=== PATIENT | female | born 1945 | race Caucasian/White ===

== ENCOUNTER 2017-08-21 09:44 | Emergency (ER) | payer OTHER ==
[2017-08-21 10:37] LABS: Absolute Lymphocytes (CBC) 1.6 K/uL (0.7-4.9); Absolute Neutrophil 5.5 K/uL (1.8-8.0); Basophils % 1.4 % (0-1.3); Eosinophils % 1.4 % (0-4.4); Hematocrit 42.4 % (36.0-45.0); Lymphocytes % 19.4 % (15.3-44.8); MCH 30.2 pg (27.0-35.0); MCV 90.4 fL (80-100); MPV 10.2 fL (7.6-11.3); Monocytes % 11.8 % (3.3-12.3); RBC Red Blood Cell Count 4.69 M/uL (3.86-4.86)
[2017-08-21 10:58] LABS: Bicarbonate 31 mEq/L (21-31); Glucose Level 112 mg/dL (65-120); Potassium 4.2 mEq/L (3.6-5.0); Sodium Level 137 mEq/L (135-145)
[2017-08-21 10:59] LABS: BUN Blood Urea Nitrogen 10 mg/dL (6-20)
--- NOTE | 2017-08-21 11:06 | RAD REPORT ---
EXAM DESCRIPTION: CT - Head Brain Wo Cont - 08/21/2017 10:48 am CLINICAL HISTORY: Headache COMPARISON: None. TECHNIQUE: Computed axial tomography of the head was obtained. IV contrast was not requested. All CT scans are performed using dose optimization technique as appropriate and may include automated exposure control or mA/KV adjustment according to patient size. FINDINGS: An intracranial bleed is not seen . The ventricles are normal in caliber. No extra-axial fluid collection is noted. Fluid within the sinuses/ mastoids is not seen. IMPRESSION: No acute intracranial abnormality is seen. If patient's symptoms persist MRI of the bra in would be recommended.
--- NOTE | 2017-08-21 11:27 | EDPHYS ---
Physician Documentation [facility] Name: Dayan Riojas Age: 72 yrs Sex: Female : 1945 Arrival Date: 08/21/2017 Time: 09:48 Bed 8 Private MD: Peter Garcia F ED Physician Bryant Dumont HPI: 08/21 10:11 This 72 yrs old Female presents to ER via Ambulatory with complaints of kdr Headache. 10:11 The patient complains of pain to the forehead, right eye, right cheek, nose, left cheek kdr and left eye. The patient describes the headache as aching, constant, a pressure, unrelenting. Onset: The symptoms/episode began/occurred The is an ongoing HOLLAND for months if not years that has become mildly worse in the last two days. Her last imaging was five years ago. There has not been any abrupt changes in the severity or location of the HOLLAND. it is persistently in her face - more upper than lower.. Associated signs and symptoms: The patient has no apparent associated signs or symptoms. Severity of symptoms: At its worst the pain was moderate, in the emergency department the pain is unchanged. Headache History: Other More sever the last two days bu the patient does not appear in any acute distress. She is sitting on the bedside comfortably. The symptoms are alleviated by nothing. the symptoms are aggravated by nothing. The patient has experienced similar episodes in the past, chronically. The patient has been recently seen by a physician: Dr. Garcia. Historical: - Allergies: 09:55 No Known Allergies; hb - Home Meds: 09:55 Magnesium Oxide Oral [Active]; Fish Oil oral oral [Active]; aspirin 325 mg Oral tab 1 hb tab once daily [Active]; metoprolol tartrate 25 mg Oral tab 1 tab once daily [Active]; donepezil 23 mg oral tab 1 tab once daily [Active]; Namzaric 28-10 mg oral CSpX 1 cap once daily [Active]; losartan 100 mg oral tab 1 tab once daily [Active]; levothyroxine 50 mcg tab 1 tab once daily [Active]; - PSHx: 09:55 Knee - LEFT; Heart stents; Shoulder - RIGHT; Cholecystectomy; hb - Immunization history:: Adult Immunizations up to date. - Social history:: Smoking status: Patient/guardian denies using tobacco. - Ebola Screening: : No symptoms or risks identified at this time. ROS: 10:11 Constitutional: Negative for fever, chills, and weight loss, Eyes: Negative for injury, kdr pain, redness, and discharge, ENT: Negative for injury, pain, and discharge, Neck: Negative for injury, pain, and swelling, Cardiovascular: Negative for chest pain, palpitations, and edema, Respiratory: Negative for shortness of breath, cough, wheezing, and pleuritic chest pain, Abdomen/GI: Negative for abdominal pain, nausea, vomiting, diarrhea, and constipation, Back: Negative for injury and pain, : Negative for injury, bleeding, discharge, and swelling, MS/Extremity: Negative for injury and deformity, Skin: Negative for injury, rash, and discoloration, Psych: Negative for depression, anxiety, suicide ideation, homicidal ideation, and hallucinations, Allergy/Immunology: Negative for hives, rash, and allergies, Endocrine: Negative for neck swelling, polydipsia, polyuria, polyphagia, and marked weight changes, Hematologic/Lymphatic: Negative for swollen nodes, abnormal bleeding, and unusual bruising. 10:11 Neuro: Positive for headache, Negative for altered mental status, dizziness, gait disturbance, hearing loss, loss of consciousness, numbness, seizure activity, speech changes, syncope, near syncope, tingling, tinnitus, tremor, visual changes, weakness. Exam: 10:11 Constitutional: This is a well developed, well nourished patient who is awake, alert, kdr and in no acute distress. Head/Face: Normocephalic, atraumatic. Eyes: Pupils equal round and reactive to light, extra-ocular motions intact. Lids and lashes normal. Conjunctiva and sclera are non-icteric and not injected. Cornea within normal limits. Periorbital areas with no swelling, redness, or edema. Neck: Trachea midline, no thyromegaly or masses palpated, and no cervical lymphadenopathy. Supple, full range of motion without nuchal rigidity, or vertebral point tenderness. No Meningismus. Chest/axilla: Normal chest wall appearance and motion. Nontender with no deformity. No lesions are appreciated. Cardiovascular: Regular rate and rhythm with a normal S1 and S2. No gallops, murmurs, or rubs. Normal PMI, no JVD. No pulse deficits. Respiratory: Lungs have equal breath sounds bilaterally, clear to auscultation and percussion. No rales, rhonchi or wheezes noted. No increased work of breathing, no retractions or nasal flaring. Abdomen/GI: Soft, non-tender, with normal bowel sounds. No distension or tympany. No guarding or rebound. No evidence of tenderness throughout. Back: No spinal tenderness. No costovertebral tenderness. Full range of motion. Skin: Warm, dry with normal turgor. Normal color with no rashes, no lesions, and no evidence of cellulitis. MS/ Extremity: Pulses equal, no cyanosis. Neurovascular intact. Full, normal range of motion. Neuro: Awake and alert, GCS 15, oriented to person, place, time, and situation. Cranial nerves II-XII grossly intact. Motor strength 5/5 in all extremities. Sensory grossly intact. Cerebellar exam normal. Normal gait. Psych: Awake, alert, with orientation to person, place and time. Behavior, mood, and affect are within normal limits. Vital Signs: 09:52 BP 168 / 76; Pulse 52; Resp 16; Temp 98.2; Pulse Ox 99% on R/A; Weight 68.95 kg; Height hb 5 ft. 5 in. (165.10 cm); Pain 8/10; 10:33 BP 150 / 59; Pulse 52; Resp 18; Pulse Ox 95% on R/A; sv 12:18 Pain 4/10; dm5 09:52 Body Mass Index 25.29 (68.95 kg, 165.10 cm) hb MDM: 11:27 Patient medically screened. kdr 11:29 Data reviewed: vital signs, nurses notes, lab test result(s), radiologic studies. kdr Counseling: I had a detailed discussion with the patient and/or guardian regarding: the historical points, exam findings, and any diagnostic results supporting the discharge/admit diagnosis, lab results, radiology results, the need for outpatient follow up. Physician consultation: Peter Garcia MD was called at 11:20, was contacted at 11:20, regarding consult, patient's condition, need to evaluate the patient as soon as possible, outpatient follow-up, in 2-3 days, and will see patient in office, in 2-3 days. 11:30 Special discussion: I discussed with the patient/guardian in detail that at this point kdr there is no indication for admission to the hospital. It is understood, however, that if the symptoms persist or worsen the patient needs to return immediately for re-evaluation. Based on the history and exam findings, there is no indication for further emergent testing or inpatient evaluation. I discussed with the patient/guardian the need to see the neurologist for further evaluation of the symptoms. ED course: The patient was stable in the ED and non-toxic in any way. 08/21 10:09 Order name: CBC with Diff kdr 08/21 10:09 Order name: Chem 7 kdr 08/21 10:09 Order name: CT Head Brain wo Cont; Complete Time: 11:22 kdr 08/21 10:10 Order name: CBC with Automated Diff; Complete Time: 11:22 EDIN 08/21 10:10 Order name: Basic Metabolic Panel; Complete Time: 11:22 [facility] 08/21 12:17 Order name: Urine Dipstick--Ancillary (enter results) ag 08/21 10:09 Order name: Urine Dipstick-Ancillary (obtain specimen); Complete Time: 12:09 [facility] Administered Medications: 12:13 Drug: traMADol 50 mg Route: PO; dm5 12:18 Follow up: Response: No adverse reaction; Medication administered at discharge. dm5 Disposition: 08/21/17 11:27 Discharged to Home. Impression: Headache. - Condition is Stable. - Discharge Instructions: General Headache Without Cause. - Prescriptions for Depakote 250 mg Oral Tablet, Delayed Release (E.C.) - take 1 tablet by ORAL route At bedtime; 15 tablet. Tramadol 50 mg Oral Tablet - take 1 tablet by ORAL route every 8 hours as needed; 12 tablet. - Medication Reconciliation Form, Thank You Letter, Antibiotic Education, Prescription Opioid Use form. - Follow up: Peter Garcia MD; When: Today; Reason: If symptoms return, Further diagnostic work-up, Recheck today's complaints, Continuance of care, Re-evaluation by your physician. - Problem is an ongoing problem. - Symptoms are unchanged. Signatures: Dispatcher [facility] Haily Kc, JONEL RN dm5 Bryant Dumont MD MD [facility] Maryjane Jackson RN RN Corrections: (The following items were deleted from the chart) 12:19 11:27 08/21/2017 11:27 Discharged to Home. Impression: Headache. Condition is Stable. dm5 Forms are Medication Reconciliation Form, Thank You Letter, Antibiotic Education, Prescription Opioid Use. Follow up: Peter Garcia; When: Today; Reason: If symptoms return, Further diagnostic work-up, Recheck today's complaints, Continuance of care, Re-evaluation by your physician. Problem is an ongoing problem. Symptoms are unchanged. kdr
--- NOTE | 2017-08-21 11:27 | ER ---
Nurse's Notes [facility] Name: Dayan Riojas Age: 72 yrs Sex: Female : 1945 Arrival Date: 08/21/2017 Time: 09:48 Bed 8 Private MD: Peter Garcia F Diagnosis: Headache Presentation: 08/21 09:50 Presenting complaint: Patient states: Headache x 2 days. Denies photosensitivity, N/V. hb Hx migraines, chronic headache. Today headache feels worse than her typical headache. Was instructed by Dr. Garcia to come to ED. Transition of care: patient was not received from another setting of care. Onset of symptoms was August 20, 2017. Risk Assessment: Do you want to hurt yourself or someone else? Patient reports no desire to harm self or others. Initial Sepsis Screen: Does the patient meet any 2 criteria? No. Patient's initial sepsis screen is negative. Does the patient have a suspected source of infection? No. Patient's initial sepsis screen is negative. Care prior to arrival: None. 09:50 Method Of Arrival: Ambulatory hb 09:50 Acuity: AZIZA 3 hb Triage Assessment: 09:55 Headache History: The patient has had previous headaches and this one is more severe sv than previous episodes. Historical: - Allergies: 09:55 No Known Allergies; hb - Home Meds: 09:55 Magnesium Oxide Oral [Active]; Fish Oil oral oral [Active]; aspirin 325 mg Oral tab 1 hb tab once daily [Active]; metoprolol tartrate 25 mg Oral tab 1 tab once daily [Active]; donepezil 23 mg oral tab 1 tab once daily [Active]; Namzaric 28-10 mg oral CSpX 1 cap once daily [Active]; losartan 100 mg oral tab 1 tab once daily [Active]; levothyroxine 50 mcg tab 1 tab once daily [Active]; - PSHx: 09:55 Knee - LEFT; Heart stents; Shoulder - RIGHT; Cholecystectomy; hb - Immunization history:: Adult Immunizations up to date. - Social history:: Smoking status: Patient/guardian denies using tobacco. - Ebola Screening: : No symptoms or risks identified at this time. Screenin:57 Abuse screen: Denies threats or abuse. Denies injuries from another. Nutritional sv screening: No deficits noted. Tuberculosis screening: No symptoms or risk factors identified. Fall Risk None identified. Assessment: 09:55 General: Appears in no apparent distress. uncomfortable, Behavior is calm, cooperative, sv appropriate for age. Pain: Complains of pain in forehead, right eye, right cheek, left cheek and left eye Pain currently is 8 out of 10 on a pain scale. Quality of pain is described as throbbing, Pain began 2-3 days ago. Is continuous, Current management - is no interventions. Neuro: Level of Consciousness is awake, alert, obeys commands, Oriented to person, place, time, situation, Moves all extremities. Full function Gait is steady, Speech is normal, Facial symmetry appears normal. Respiratory: Respiratory effort is even, unlabored, Respiratory pattern is regular, symmetrical. : No signs and/or symptoms were reported regarding the genitourinary system. Derm: Skin is normal. Musculoskeletal: No signs and/or symptoms reported regarding the musculoskeletal system. 12:18 Reassessment: Patient appears in no apparent distress at this time. Patient is alert, dm5 oriented x 3, equal unlabored respirations, skin warm/dry/pink. Vital Signs: 09:52 BP 168 / 76; Pulse 52; Resp 16; Temp 98.2; Pulse Ox 99% on R/A; Weight 68.95 kg; Height hb 5 ft. 5 in. (165.10 cm); Pain 8/10; 10:33 BP 150 / 59; Pulse 52; Resp 18; Pulse Ox 95% on R/A; sv 12:18 Pain 4/10; dm5 09:52 Body Mass Index 25.29 (68.95 kg, 165.10 cm) hb ED Course: 09:48 Patient arrived in ED. sb2 09:49 Peter Garcia MD is Private Physician. sb2 09:52 Triage completed. hb 09:55 Arm band placed on left wrist. hb 09:57 Ute Singh RN is Primary Nurse. sv 09:57 Patient has correct armband on for positive identification. Bed in low position. Adult sv w/ patient. 09:59 Bryant Dumont MD is Attending Physician. kdr 10:26 Chem 7 Sent. sv 10:26 CBC with Diff Sent. sv 10:33 Initial lab(s) drawn, by va, sent to lab. Inserted saline lock: 20 gauge in left sv antecubital area, using aseptic technique. Blood collected. 10:46 CT completed. Patient tolerated procedure well. Patient moved to CT via stretcher. mw3 Patient moved back from CT. 10:49 CT Head Brain wo Cont In Process Unspecified. EDMS 11:27 Peter Garcia MD is Referral Physician. kdr 12:18 No provider procedures requiring assistance completed. IV discontinued, intact, dm5 bleeding controlled, No redness/swelling at site. Pressure dressing applied. Administered Medications: 12:13 Drug: traMADol 50 mg Route: PO; dm5 12:18 Follow up: Response: No adverse reaction; Medication administered at discharge. dm5 Outcome: 11:27 Discharge ordered by MD. kdr 12:18 Discharged to home ambulatory, with family. dm5 12:18 Condition: good 12:18 Discharge instructions given to patient, family, Instructed on discharge instructions, follow up and referral plans. medication usage, Demonstrated understanding of instructions, follow-up care, medications, Prescriptions given X 2. 12:19 Patient left the ED. dm5 Signatures: Dispatcher [employer] EDNM Haily Kc, RN RN dm5 Ute Singh RN RN Bryant Terrell MD MD kdr Baxter, Heather, JONEL RN Indira Cordero sb2 Cheyenne Sifuentes mw3
[2017-08-21] MEDS ORDERED: TRAMADOL HCL 50 MG TAB ONE (12:13)
[2017-08-21 12:21] LABS: Urine Blood NEGATIVE (NEG); Urine Glucose NEGATIVE (NEG); Urine Protein NEGATIVE (NEG); Urine Specific Gravity 1.015 (1.005-1.030)
== END 2017-08-21 12:19 | disposition home or self-care (01) ==
LOC: ER 09:44
DX: R51 Headache (principal); Z79.82 Long term (current) use of aspirin; Z95.818 Presence of other cardiac implants and grafts
CPT/HCPCS: 36415; 70450; 80048; 81003; 85025; 99284

== ENCOUNTER 2018-02-01 14:18 | Emergency (ER) | payer OTHER ==
--- NOTE | 2018-02-01 14:40 | ER ---
Nurse's Notes [facility] Name: Dayan Riojas Age: 72 yrs Sex: Female : 1945 Arrival Date: 02/01/2018 Time: 14:18 Bed 13 Private MD: Diagnosis: Urticaria, unspecified Presentation: 02/01 14:28 Presenting complaint: Patient states: i started having itchy type of rash on my face, hj neck, arms that started a weeks ago; denies fever and chills;. Transition of care: patient was not received from another setting of care. Onset of symptoms was February 01, 2018. Risk Assessment: Do you want to hurt yourself or someone else? Patient reports no desire to harm self or others. Initial Sepsis Screen: Does the patient meet any 2 criteria? No. Patient's initial sepsis screen is negative. Does the patient have a suspected source of infection? No. Patient's initial sepsis screen is negative. Care prior to arrival: None. 14:28 Method Of Arrival: Ambulatory 14:28 Acuity: AZIZA 4 hj Triage Assessment: 14:32 General: Appears in no apparent distress. uncomfortable, Behavior is calm, cooperative, hj appropriate for age. Pain: Denies pain. Historical: - Allergies: 14:31 No Known Allergies; hj - Home Meds: 14:31 aspirin 325 mg Oral tab 1 tab once daily [Active]; donepezil 23 mg Oral tab 1 tab once hj daily [Active]; Fish Oil Oral [Active]; levothyroxine 50 mcg tab 1 tab once daily [Active]; losartan 100 mg Oral tab 1 tab once daily [Active]; Magnesium Oxide Oral [Active]; metoprolol tartrate 25 mg Oral tab 1 tab once daily [Active]; Namzaric 28-10 mg Oral CSpX 1 cap once daily [Active]; - PSHx: 14:31 Knee - LEFT; Heart stents; Shoulder - RIGHT; Cholecystectomy; hj - Immunization history:: Adult Immunizations up to date. - Social history:: Smoking status: Patient/guardian denies using tobacco, Patient/guardian denies using alcohol. - Ebola Screening: : Patient negative for fever greater than or equal to 101.5 degrees Fahrenheit, and additional compatible Ebola Virus Disease symptoms Patient denies exposure to infectious person Patient denies travel to an Ebola-affected area in the 21 days before illness onset. Screenin:32 Abuse screen: Denies threats or abuse. Denies injuries from another. Nutritional hj screening: No deficits noted. Tuberculosis screening: No symptoms or risk factors identified. Fall Risk None identified. Assessment: 14:33 General: Appears in no apparent distress. uncomfortable, Behavior is calm, cooperative, hj appropriate for age. Pain: Denies pain. Neuro: Level of Consciousness is awake, alert, obeys commands, Oriented to person, place, time, situation, Appropriate for age. Cardiovascular: Capillary refill < 3 seconds Patient's skin is warm and dry. Respiratory: Airway is patent Respiratory effort is even, unlabored, Respiratory pattern is regular, symmetrical. GI: No signs and/or symptoms were reported involving the gastrointestinal system. GI: No signs and/or symptoms were reported involving the gastrointestinal system. : No signs and/or symptoms were reported regarding the genitourinary system. EENT: No signs and/or symptoms were reported regarding the EENT system. Derm: Rash noted that is. Musculoskeletal: No signs and/or symptoms reported regarding the musculoskeletal system. Vital Signs: 14:31 BP 168 / 90; Pulse 60; Resp 18; Temp 97.6(TE); Pulse Ox 100% on R/A; Weight 72.57 kg; hj Height 5 ft. 5 in. (165.10 cm); Pain 0/10; 14:31 Body Mass Index 26.63 (72.57 kg, 165.10 cm) hj ED Course: 14:18 Patient arrived in ED. ds1 14:24 Florentino Hill PA is PHCP. cp 14:24 Brian Cuevas MD is Attending Physician. cp 14:27 Chris Prescott, JONEL is Primary Nurse. hj 14:29 Triage completed. hj 14:32 Arm band placed on left wrist. hj 14:32 Patient has correct armband on for positive identification. Bed in low position. Call hj light in reach. Side rails up X 1. Adult w/ patient. 14:49 No provider procedures requiring assistance completed. Patient did not have IV access hj during this emergency room visit. Administered Medications: No medications were administered Outcome: 14:39 Discharge ordered by MD. cp 14:49 Discharged to home ambulatory, with family. hj 14:49 Condition: stable 14:49 Discharge instructions given to patient, family, Instructed on discharge instructions, follow up and referral plans. medication usage, Demonstrated understanding of instructions, follow-up care, medications, Prescriptions given X 3. 14:49 Patient left the ED. autumn Signatures: Becky Muir ds1 Chris Prescott, RN RN Florentino Ac PA PA cp
--- NOTE | 2018-02-01 14:40 | EDPHYS ---
Physician Documentation [facility] Name: Dayan Riojas Age: 72 yrs Sex: Female : 1945 Arrival Date: 02/01/2018 Time: 14:18 Bed 13 Private MD: ED Physician Brian Cuevas HPI: 02/01 14:30 This 72 yrs old Female presents to ER via Ambulatory with complaints of Rash. cp 14:30 The patient's rash thought to be caused by an unknown cause. The rash is located on the cp body diffusely. The rash can be described as erythematous, papular, urticarial. Onset: The symptoms/episode began/occurred 1 week(s) ago. Associated signs and symptoms: Pertinent positives: itching, Pertinent negatives: difficulty breathing, fever, swelling of lips, swelling of throat, swelling of tongue. Severity of symptoms: in the emergency department the symptoms are unchanged. Treatment given at home: steroid lotion/cream. Historical: - Allergies: 14:31 No Known Allergies; hj - Home Meds: 14:31 aspirin 325 mg Oral tab 1 tab once daily [Active]; donepezil 23 mg Oral tab 1 tab once hj daily [Active]; Fish Oil Oral [Active]; levothyroxine 50 mcg tab 1 tab once daily [Active]; losartan 100 mg Oral tab 1 tab once daily [Active]; Magnesium Oxide Oral [Active]; metoprolol tartrate 25 mg Oral tab 1 tab once daily [Active]; Namzaric 28-10 mg Oral CSpX 1 cap once daily [Active]; - PSHx: 14:31 Knee - LEFT; Heart stents; Shoulder - RIGHT; Cholecystectomy; hj - Immunization history:: Adult Immunizations up to date. - Social history:: Smoking status: Patient/guardian denies using tobacco, Patient/guardian denies using alcohol. - Ebola Screening: : Patient negative for fever greater than or equal to 101.5 degrees Fahrenheit, and additional compatible Ebola Virus Disease symptoms Patient denies exposure to infectious person Patient denies travel to an Ebola-affected area in the 21 days before illness onset. ROS: 14:33 Eyes: Negative for injury, pain, redness, and discharge. cp 14:33 Constitutional: Negative for body aches, chills, fever, poor PO intake. 14:33 ENT: Negative for drainage from ear(s), ear pain, sore throat, difficulty swallowing, difficulty handling secretions. 14:33 Cardiovascular: Negative for chest pain, edema, palpitations. 14:33 Respiratory: Negative for cough, shortness of breath, wheezing. 14:33 Abdomen/GI: Negative for abdominal pain, nausea, vomiting, and diarrhea, black/tarry stool, rectal bleeding. 14:33 Skin: Positive for rash, diffusely, Negative for abscesses, cellulitis. 14:33 Neuro: Negative for altered mental status, headache, weakness. 14:33 All other systems are negative. Exam: 14:35 Head/Face: Normocephalic, atraumatic. cp 14:35 Constitutional: The patient appears in no acute distress, alert, awake, non-diaphoretic, non-toxic, well developed, well nourished. 14:35 Eyes: Periorbital structures: appear normal, Conjunctiva: normal, no exudate, no cp injection, Sclera: no appreciated abnormality, Lids and lashes: appear normal, bilaterally. 14:35 ENT: External ear(s): are unremarkable, Nose: is normal, Mouth: is normal, Posterior pharynx: is normal, airway is patent. 14:35 Neck: ROM/movement: is normal, is supple, without pain, no range of motions limitations, no nuchal rigidity. 14:35 Chest/axilla: Palpation: is normal, no crepitus, no tenderness. 14:35 Cardiovascular: Rate: normal. 14:35 Respiratory: the patient does not display signs of respiratory distress, Respirations: normal, no use of accessory muscles, no retractions, no splinting, no tachypnea, labored breathing, is not present. 14:35 Abdomen/GI: Exam negative for discomfort, distension, guarding. 14:35 Skin: consistent with urticaria, areas appear excoriated with no signs of erythema or drainage. Vital Signs: 14:31 BP 168 / 90; Pulse 60; Resp 18; Temp 97.6(TE); Pulse Ox 100% on R/A; Weight 72.57 kg; hj Height 5 ft. 5 in. (165.10 cm); Pain 0/10; 14:31 Body Mass Index 26.63 (72.57 kg, 165.10 cm) MDM: 14:24 Patient medically screened. cp 14:35 Differential diagnosis: impetigo, varicella, allergic reaction, scabies. cp 14:38 Data reviewed: vital signs, nurses notes, and as a result, I will discharge patient. cp Administered Medications: No medications were administered Disposition: 18:35 Co-signature as Attending Physician, Brian Cuevas MD. ma2 Disposition: 02/01/18 14:39 Discharged to Home. Impression: Urticaria, unspecified. - Condition is Stable. - Discharge Instructions: Hives. - Prescriptions for Pepcid 20 mg Oral Tablet - take 1 tablet by ORAL route every 12 hours for 5 days; 10 tablet. Triamcinolone Acetonide 0.5 % Topical Cream - apply 1 application by TOPICAL route 2 times per day As needed may apply cream to areas of rash except face; 1 tube. Prednisone 20 mg Oral Tablet - take 2 tablet by ORAL route once daily for 5 days; 10 tablet. - Medication Reconciliation Form, Thank You Letter, Antibiotic Education, Prescription Opioid Use form. - Follow up: Private Physician; When: 5 - 6 days; Reason: Recheck today's complaints. - Problem is new. - Symptoms are unchanged. Signatures: Chris Prescott RN RN hj Florentino Hill PA PA Brian Doan MD MD ma2 Corrections: (The following items were deleted from the chart) 14:49 14:39 02/01/2018 14:39 Discharged to Home. Impression: Urticaria, unspecified. hj Condition is Stable. Forms are Medication Reconciliation Form, Thank You Letter, Antibiotic Education, Prescription Opioid Use. Follow up: Private Physician; When: 5 - 6 days; Reason: Recheck today's complaints. Problem is new. Symptoms are unchanged. cp
== END 2018-02-01 14:49 | disposition home or self-care (01) ==
LOC: ER 14:18
DX: L50.9 Urticaria, unspecified (principal); Z79.82 Long term (current) use of aspirin; Z95.818 Presence of other cardiac implants and grafts
CPT/HCPCS: 99282

== ENCOUNTER 2021-04-02 18:15 | Inpatient (IN) | payer OTHER ==
--- OUTSIDE RECORDS SUMMARY | 2021-04-02 18:19 | XMS REPORT | Continuity of Care Document ---
:1945 Author Organization [facility] t Address [address] [place] [place] [address] Care Team Providers Name Role Phone Mechelle Cline Attending Clinician Doctor Unassigned, Name Attending Clinician Unavailable Problems This patient has no known problems. Allergies, Adverse Reactions, Alerts This patient has no known allergies or adverse reactions. Medications This patient has no known medications. Procedures This patient has no known procedures. Encounters Start End Encounter Admission Attending Care Care Encounter Source Date/Time Date/Time Type Type Clinicians Facility Department ID 2018-11-07 2018-11-07 Emergency [place] [facility] [id number] 11:17:15 13:29:00 Mechelle Bradshaw [id number] [place] [id number] [place] [id number] 2018-11-07 2018-11-07 Orders Doctor RACHEL [id number] 00:00:00 00:00:00 Only UnassignedGABRIELLE [id number] [place] [facility] [id number] Results This patient has no known results.
--- NOTE | 2021-04-02 20:11 | RAD REPORT ---
EXAM DESCRIPTION: RAD - Chest Single View - 04/02/2021 7:44 pm CLINICAL HISTORY: AMS COMPARISON: No comparisons FINDINGS: Lines: None. Lungs: Emphysematous changes. Volume loss in the right lung with scattered irregular opacities and br onchial wall thickening. Pleural: Rounded nodule right mid lung may be fluid trapped within the minor fissure but is nonspecif ic. Cardiac: Cardiomegaly. Bones: No acute fractures. Other: IMPRESSION: Primarily chronic finding suspected with emphysema but other areas of more irregular air space disease that could represent superimposed acute pneumonia. Right mid lung nodular opacity. Consider nonemergent chest CT for further characterization.
--- NOTE | 2021-04-02 20:46 | RAD REPORT ---
EXAM DESCRIPTION: CT - Head Brain Wo Cont - 04/02/2021 8:39 pm CLINICAL HISTORY: CONFUSED COMPARISON: Head Brain Wo Cont dated 08/21/2017 TECHNIQUE: All CT scans are performed using dose optimization technique as appropriate and may inclu de automated exposure control or mA/KV adjustment according to patient size. FINDINGS: No intracranial hemorrhage, hydrocephalus or extra-axial fluid collection.No areas of brai n edema or evidence of midline shift. Cerebral atrophy. Mild chronic small vessel ischemic changes. The paranasal sinuses and mastoids are clear. The calvarium is intact. IMPRESSION: No acute intracranial abnormality.
[2021-04-02 21:42] LABS: Protime INR 1.6
[2021-04-02 21:43] LABS: Absolute Lymphocytes (CBC) 0.5 K/uL (0.7-4.9); Hematocrit 42.5 % (36.0-45.0); Lymphocytes % 4.7 % (15.3-44.8); MPV 9.5 fL (7.6-11.3); RBC Red Blood Cell Count 5.08 M/uL (3.86-4.86)
[2021-04-02 22:06] LABS: ALT/SGPT 17 U/L (12-78); AST/SGOT 57 U/L (15-37); Albumin 2.8 g/dL (3.4-5.0); Alkaline Phosphatase 109 U/L (45-117); BUN Blood Urea Nitrogen 16 mg/dL (7-18); Bicarbonate 32 mmol/L (21-32); Bilirubin Direct 0.4 mg/dL (0-0.2); Bilirubin Total 0.9 mg/dL (0.2-1.0); Glucose Level 118 mg/dL (74-106); NT PRO-BNP 15314 pg/mL (<450); Sodium Level 137 mmol/L (136-145)
[2021-04-02 22:12] LABS: Potassium 2.5 mmol/L (3.5-5.1)
[2021-04-02 22:17] LABS: SARS-COV-2 RT PCR NEGATIVE (NEGATIVE)
--- NOTE | 2021-04-02 22:25 | EDPHYS ---
Physician Documentation [facility] Name: Dayan Riojas Age: 75 yrs Sex: Female : 1945 Arrival Date: 04/02/2021 Time: 18:33 Bed 7 Private MD: ED Physician Wilder Grande HPI: 04/02 19:16 This 75 yrs old Female presents to ER via EMS with complaints of Altered Mental Status. mh7 19:16 The patient presents with confusion. Onset: The symptoms/episode began/occurred mh7 yesterday, at an unknown time. 19:16 Possible causes: unknown. mh7 19:16 Associated signs and symptoms: Pertinent positives: confusion, dizziness, weakness, mh7 Pertinent negatives: abdominal pain, agitation, ataxia, blurred vision, chest pain, combativeness, diaphoresis, diarrhea, headache, nausea, numbness, palpitations, seizure, shortness of breath, tingling, vertigo, vomiting. Current symptoms: In the emergency department the patient's symptoms are unchanged from the initial presentation. Patient's baseline: Neuro: alert but confused, Motor: no deficits, Speech: normal for age, The patient has a previous history of Dementia. According to EMS family had patient brought to ED for evaluation due to increased confusion, dizziness, and weakness. They reported the patient had been laying on sofa for the past 18 hours. She has a history of dementia. Patient denies any complaints at time of evaluation in ED.. Historical: - Allergies: 18:36 No Known Allergies; ll1 - PMHx: 18:36 Dementia; Hypothyroidism; Hypertensive disorder; ll1 - PSHx: 18:36 Unable to Obtain; ll1 - Immunization history:: Adult Immunizations unknown. - Social history:: Smoking status: Patient denies any tobacco usage or history of. ROS: 19:16 Constitutional: Negative for fever, chills, and weight loss, Eyes: Negative for injury, mh7 pain, redness, and discharge, ENT: Negative for injury, pain, and discharge, Neck: Negative for injury, pain, and swelling, Cardiovascular: Negative for chest pain, palpitations, and edema, Respiratory: Negative for shortness of breath, cough, wheezing, and pleuritic chest pain, Abdomen/GI: Negative for abdominal pain, nausea, vomiting, diarrhea, and constipation, Back: Negative for injury and pain, : Negative for injury, bleeding, discharge, and swelling, MS/Extremity: Negative for injury and deformity, Skin: Negative for injury, rash, and discoloration, Psych: Negative for depression, anxiety, suicide ideation, homicidal ideation, and hallucinations, Allergy/Immunology: Negative for hives, rash, and allergies, Endocrine: Negative for neck swelling, polydipsia, polyuria, polyphagia, and marked weight changes, Hematologic/Lymphatic: Negative for swollen nodes, abnormal bleeding, and unusual bruising. Exam: 19:16 Constitutional: This is a well developed, well nourished patient who is awake, alert, mh7 and in no acute distress. Head/Face: Normocephalic, atraumatic. Eyes: Pupils equal round and reactive to light, extra-ocular motions intact. Lids and lashes normal. Conjunctiva and sclera are non-icteric and not injected. Cornea within normal limits. Periorbital areas with no swelling, redness, or edema. Neck: Trachea midline, no thyromegaly or masses palpated, and no cervical lymphadenopathy. Supple, full range of motion without nuchal rigidity, or vertebral point tenderness. No Meningismus. Chest/axilla: Normal chest wall appearance and motion. Nontender with no deformity. No lesions are appreciated. 19:16 Abdomen/GI: Soft, non-tender, with normal bowel sounds. No distension or tympany. No guarding or rebound. No evidence of tenderness throughout. Back: No spinal tenderness. No costovertebral tenderness. Full range of motion. Skin: Warm, dry with normal turgor. Normal color with no rashes, no lesions, and no evidence of cellulitis. MS/ Extremity: Pulses equal, no cyanosis. Neurovascular intact. Full, normal range of motion. 19:16 Cardiovascular: Rate: tachycardic, Rhythm: regular, Pulses: no pulse deficits are appreciated, Heart sounds: normal, normal S1and S2, Edema: is not appreciated, JVD: is not appreciated. 19:16 Respiratory: the patient does not display signs of respiratory distress, Respirations: prolonged exhalation, that is mild, Breath sounds: rhonchi, that are mild, are heard diffusely, Respiratory rate: 20 19:16 Neuro: Orientation: to person, place, Mentation: confused, Memory: unable to test, the patient has a history of dementia, Cranial nerves: is grossly normal based on the patient's age, Cerebellar function: is grossly normal based on the patient's age, Motor: moves all fours, Sensation: no obvious gross deficits, Gait: not tested. seizure activity, is not displayed by the patient, Abnormal movements: there are no abnormal movements. Vital Signs: 18:43 BP 118 / 80; Pulse 118; Resp 17; Temp 98.0; Pulse Ox 98% on R/A; ll1 18:52 BP 139 / 84; Pulse 104; Resp 19; Temp 98.2(TE); Pulse Ox 97% on R/A; ap3 20:00 BP 138 / 70; Pulse 101; Resp 28; Pulse Ox 90% ; al4 23:00 BP 128 / 65; Pulse 89; Resp 25; Pulse Ox 96% on 4 lpm NC; al4 04/03 00:00 BP 126 / 65; Pulse 96; Resp 24; Pulse Ox 98% on 4 lpm NC; al4 01:00 BP 122 / 74; Pulse 86; Resp 24; Pulse Ox 100% on 4 lpm NC; al4 01:45 BP 109 / 84; Pulse 100; Resp 24; Pulse Ox 100% on 4 lpm NC; al4 02:15 BP 116 / 69; Pulse 87; Resp 24; Pulse Ox 100% on 4 lpm NC; al4 02:34 Weight 52.16 kg (R); al4 MDM: 04/02 22:22 Differential Diagnosis: CVA, electrolyte abnormality, alcohol intoxication, mh7 hypoglycemia, intracranial bleed, pneumonia, sepsis, TIA, UTI, volume depletion. Data reviewed: vital signs, nurses notes, EMS record, old medical records, lab test result(s), cardiac enzymes, CBC, electrolytes, EKG, radiologic studies, CT scan, plain films. Data interpreted: Pulse oximetry: on 2L(s) per nasal canula, is 95 %. Interpretation: acceptable. Counseling: I had a detailed discussion with the patient and/or guardian regarding: the historical points, exam findings, and any diagnostic results supporting the discharge/admit diagnosis, the presence of at least one elevated blood pressure reading (>120/80) during this emergency department visit, lab results, radiology results, the need for further work-up and treatment in the hospital. Response to treatment: the patient's symptoms have mildly improved after treatment. 22:24 Patient medically screened. [facility] 04/02 19:13 Order name: Basic Metabolic Panel; Complete Time: 22:17 [facility] 04/02 19:13 Order name: CBC with Diff; Complete Time: 21:51 04/02 19:13 Order name: LFT's; Complete Time: 22:17 [facility] 04/02 19:13 Order name: Magnesium; Complete Time: 22:17 [facility] 04/02 19:13 Order name: NT PRO-BNP; Complete Time: 22:17 [facility] 04/02 19:13 Order name: PT-INR; Complete Time: 21:51 [facility] 04/02 19:13 Order name: Troponin HS; Complete Time: 22:17 [facility] 04/02 19:13 Order name: Blood Culture Adult (2) [facility] 04/02 19:13 Order name: Urine Culture [facility] 04/02 19:13 Order name: Lactate; Complete Time: 22:11 [facility] 04/02 19:13 Order name: Procalcitonin; Complete Time: 22:11 [facility] 04/02 19:14 Order name: COVID-19/FLU A+B/RSV (Document "Date of Onset" if Symptomatic); Complete [facility] Time: 22:19 04/02 19:15 Order name: Acetaminophen; Complete Time: 22:17 [facility] 04/02 19:15 Order name: ETOH Level; Complete Time: 21:51 [facility] 04/02 19:13 Order name: XRAY Chest (1 view); Complete Time: 20:31 [facility] 04/02 19:13 Order name: EKG; Complete Time: 19:15 [facility] 04/02 19:13 Order name: Cardiac monitoring; Complete Time: 21:29 [facility] 04/02 19:13 Order name: EKG - Nurse/Tech; Complete Time: 03:32 [facility] 04/02 19:13 Order name: IV Saline Lock; Complete Time: 21:29 [facility] 04/02 19:13 Order name: CT Head Brain wo Cont; Complete Time: 20:52 [facility] 04/02 19:15 Order name: Salicylate; Complete Time: 21:51 [facility] 04/02 19:26 Order name: Urine Microscopic Only tx1 04/02 22:34 Order name: CT Chest For PE Angio 04/03 01:11 Order name: [facility] 04/02 19:13 Order name: Labs collected and sent; Complete Time: 21:30 [facility] 04/02 19:13 Order name: O2 Per Protocol; Complete Time: 21:30 [facility] 04/02 19:13 Order name: O2 Sat Monitoring; Complete Time: 21:30 [facility] Administered Medications: 04/03 01:25 Drug: Potassium Effervescent Tablet 50 mEq Route: PO; al4 02:30 Follow up: Response: No adverse reaction al4 01:25 Drug: Rocephin (cefTRIAXone) 1 grams Route: IV; Rate: calculated rate; Site: right al4 antecubital; 02:30 Follow up: Response: No adverse reaction; IV Status: Completed infusion al4 01:25 Drug: Zithromax (azithromycin) 500 mg Route: IVPB; Infused Over: 1 hrs; Site: right al4 antecubital; 02:31 Follow up: Response: No adverse reaction; IV Status: Completed infusion al4 01:33 Drug: Potassium Chloride 20 mEq Route: IV; Rate: calculated rate; Site: right al4 antecubital; 03:04 Drug: Lovenox (enoxaparin) 1 mg/kg {Note: Given by Mary Ulloa RN .} Route: Sub-Q; al4 Site: abdomen; Disposition Summary: 04/02/21 22:24 Hospitalization Ordered Hospitalization Status: Inpatient Admission [facility] Location: Telemetry/MedSurg (Inpatient) [facility] Condition: Stable [facility] Problem: new [facility] Symptoms: have improved [facility] Bed/Room Type: Standard [facility] Provider: Gigi Langley(04/02/21 22:35) [facility] Room Assignment: [facility](04/03/21 01:28) Diagnosis - Altered mental status, unspecified [facility] - Hypokalemia [facility] - Other pneumonia, unspecified organism [facility] Forms: - Medication Reconciliation Form [facility] - SBAR form [facility] Signatures: Dispatcher [employer] [facility] Maurilio Schuster FNP-Rhonda COATSP-Cla1 Lara Chacon, RN RN cg Kade Woodward RN RN ll1 Wilder Grande MD MD [facility] Dwight Quiñones nv4 Corrections: (The following items were deleted from the chart) 04/02 21:30 19:15 URINE DRUG SCREEN+CHEM UR.LAB.BRZ ordered. EDMS EDMS 22:35 22:24 Symone Awad mh7 7 04/03 01:28 04/02 22:24 7
--- NOTE | 2021-04-02 22:25 | ER ---
Nurse's Notes [facility] Name: Dayan Riojas Age: 75 yrs Sex: Female : 1945 Arrival Date: 04/02/2021 Time: 18:33 Bed 7 Private MD: Diagnosis: Altered mental status, unspecified;Hypokalemia;Other pneumonia, unspecified organism Presentation: 04/02 18:34 Chief complaint: Patient states: Weakness (18 hours of laying on couch), dizzy, and ll1 acting abnormal per family today. EMS states: BP 118/80, HR 118 A fib with history of the same. Fingerstick 86. Coronavirus screen: Client denies travel out of the [place] in the last 14 days. Ebola Screen: Patient denies travel to an Ebola-affected area in the 21 days before illness onset. Initial Sepsis Screen: Does the patient meet any 2 criteria? HR > 90 bpm. No. Patient's initial sepsis screen is negative. Does the patient have a suspected source of infection? No. Patient's initial sepsis screen is negative. Risk Assessment: Do you want to hurt yourself or someone else? Patient reports no desire to harm self or others. Onset of symptoms was April 01, 2021. 18:34 Method Of Arrival: EMS ll1 18:34 Acuity: AZIZA 3 ll1 Historical: - Allergies: 18:36 No Known Allergies; ll1 - PMHx: 18:36 Dementia; Hypothyroidism; Hypertensive disorder; ll1 - PSHx: 18:36 Unable to Obtain; ll1 - Immunization history:: Adult Immunizations unknown. - Social history:: Smoking status: Patient denies any tobacco usage or history of. Screenin:55 Abuse screen: Denies threats or abuse. Nutritional screening: patient has decreased ap3 appetite last 24 hours. Tuberculosis screening: No symptoms or risk factors identified. Fall Risk Fall in past 12 months (25 points). Secondary diagnosis (15 points) dementia, No IV (0 pts). Ambulatory Aid- None/Bed Rest/Nurse Assist (0 pts). Gait- Weak (10 pts.). Mental Status- Overestimates/Forgets Limitations (15 pts.). Total Judd Fall Scale indicates High Risk Score (45 or more points). Fall prevention measures have been instituted. Side Rails Up X 2 Placed Close to Nursing Station Frequent Obs/Assessments Occuring As available patient and family educated on Fall Prevention Program and Strategies. Assessment: 18:54 General: Appears comfortable, Behavior is calm. Pain: Denies pain. Neuro: Level of ap3 Consciousness is awake, alert, obeys commands, Oriented to person, place, Weakness Speech is normal. Cardiovascular: Patient's skin is warm and dry. Respiratory: Airway is patent Respiratory effort is even, unlabored. Musculoskeletal: Parent/caregiver report the patient having weakness in pretty lower extremities. 19:30 General: Appears in no apparent distress. comfortable, Behavior is calm, cooperative. al4 Pain: Denies pain. Neuro: Level of Consciousness is awake, alert, obeys commands, Oriented to person, place. Cardiovascular: Heart tones present Capillary refill < 3 seconds Patient's skin is warm and dry. Respiratory: Airway is patent Respiratory effort is even, unlabored, Respiratory pattern is tachypnea Breath sounds with rhonchi bilaterally. GI: No signs and/or symptoms were reported involving the gastrointestinal system. : No signs and/or symptoms were reported regarding the genitourinary system. EENT: No signs and/or symptoms were reported regarding the EENT system. Derm: No signs and/or symptoms reported regarding the dermatologic system. Musculoskeletal: Circulation, motion, and sensation intact. 21:00 Reassessment: Patient is alert, oriented x 3, equal unlabored respirations, skin al4 warm/dry/pink. 23:00 Reassessment: Patient is alert, oriented x 3, equal unlabored respirations, skin al4 warm/dry/pink. 04/03 01:28 Reassessment: Adair (Son) [phone]. al4 01:35 Reassessment: Son just left to go home. He is updated on the plan of care and all al4 questions have been answered. Patient is awake and alert. 02:23 Reassessment: Patient is alert, oriented x 3, equal unlabored respirations, skin al4 warm/dry/pink. Vital Signs: 04/02 18:43 BP 118 / 80; Pulse 118; Resp 17; Temp 98.0; Pulse Ox 98% on R/A; ll1 18:52 BP 139 / 84; Pulse 104; Resp 19; Temp 98.2(TE); Pulse Ox 97% on R/A; ap3 20:00 BP 138 / 70; Pulse 101; Resp 28; Pulse Ox 90% ; al4 23:00 BP 128 / 65; Pulse 89; Resp 25; Pulse Ox 96% on 4 lpm NC; al4 04/03 00:00 BP 126 / 65; Pulse 96; Resp 24; Pulse Ox 98% on 4 lpm NC; al4 01:00 BP 122 / 74; Pulse 86; Resp 24; Pulse Ox 100% on 4 lpm NC; al4 01:45 BP 109 / 84; Pulse 100; Resp 24; Pulse Ox 100% on 4 lpm NC; al4 02:15 BP 116 / 69; Pulse 87; Resp 24; Pulse Ox 100% on 4 lpm NC; al4 02:34 Weight 52.16 kg (R); al4 ED Course: 04/02 18:33 Patient arrived in ED. pepito 18:36 Triage completed. ll1 18:36 Arm band placed on. ll1 18:56 Patient has correct armband on for positive identification. Bed in low position. Call ap3 light in reach. Side rails up X2. traffic monitor specialist on. Pulse ox on. NIBP on. Warm blanket given. 19:00 Wilder Grande MD is Attending Physician. mh7 19:43 XRAY Chest (1 view) In Process Unspecified. EDMS 20:39 CT Head Brain wo Cont In Process Unspecified. EDMS 21:28 Mary Ulloa, JONEL is Primary Nurse. st1 21:29 ETOH Level Sent. st1 21:29 Acetaminophen Sent. st1 21:29 COVID-19/FLU A+B/RSV (Document "Date of Onset" if Symptomatic) Sent. st1 21:29 Lactate Sent. st1 21:29 Blood Culture Adult (2) Sent. st1 21:30 Basic Metabolic Panel Sent. st1 21:30 CBC with Diff Sent. st1 21:30 LFT's Sent. st1 21:30 Troponin HS Sent. st1 21:30 Magnesium Sent. st1 21:30 NT PRO-BNP Sent. st1 21:30 PT-INR Sent. st1 21:30 Inserted saline lock: 20 gauge in right antecubital area, using aseptic technique. st1 21:31 Oxygen administration via nasal cannula \\T\\ 2L/min. st1 21:31 Initial lab(s) drawn, by wa, First set of blood cultures drawn by me, Second set of st1 blood cultures drawn by me, Urine collected: COVID swab sent to lab. 21:32 Procalcitonin Sent. st1 22:23 Symone Awad MD is Hospitalizing Provider. 7 22:35 Gigi Langley MD is Hospitalizing Provider. 7 22:58 CT Chest For PE Angio In Process Unspecified. EDIL 04/03 02:45 No provider procedures requiring assistance completed. st1 02:45 IV discontinued, R AC, accidentally by patient. al4 Administered Medications: 01:25 Drug: Potassium Effervescent Tablet 50 mEq Route: PO; al4 02:30 Follow up: Response: No adverse reaction al4 01:25 Drug: Rocephin (cefTRIAXone) 1 grams Route: IV; Rate: calculated rate; Site: right al4 antecubital; 02:30 Follow up: Response: No adverse reaction; IV Status: Completed infusion al4 01:25 Drug: Zithromax (azithromycin) 500 mg Route: IVPB; Infused Over: 1 hrs; Site: right al4 antecubital; 02:31 Follow up: Response: No adverse reaction; IV Status: Completed infusion al4 01:33 Drug: Potassium Chloride 20 mEq Route: IV; Rate: calculated rate; Site: right al4 antecubital; 03:04 Drug: Lovenox (enoxaparin) 1 mg/kg {Note: Given by Mary Ulloa RN .} Route: Sub-Q; al4 Site: abdomen; Outcome: 04/02 22:24 Decision to Hospitalize by Provider. [facility] 04/03 02:54 Admitted to Med/surg accompanied by tech, via stretcher, room 229, with chart, Report st1 called to CROW Naylor Condition: stable Instructed on the need for admit. 03:32 Patient left the ED. st1 Signatures: Dispatcher [employer] EDFlorentino Linder MD MD cha Prokisch, Amanda, RN RN ap3 Kade Woodward RN RN ll1 Wilder Grande MD MD 7 Dwight Quiñones al4 Mary Ulloa RN RN st1 Corrections: (The following items were deleted from the chart) 04/02 21:30 21:29 URINE DRUG SCREEN+CHEM UR.LAB.BRZ drawn and sent. st1 EDMS 04/03 02: 02:25 General: Appears al4 al4 :04/02 19:30 Cardiovascular: Capillary refill < 3 seconds Patient's skin is warm and al4 dry. al4 04/03 02:04/02 19:30 Respiratory: Airway is patent Respiratory effort is even, unlabored, al4 Respiratory pattern is regular, tachypnea al4 04/03 02:51 04/02 19:30 Respiratory: Airway is patent Respiratory effort is even, unlabored, al4 Respiratory pattern is regular, tachypnea Breath sounds with rhonchi bilaterally. al4
[2021-04-02] MEDS ORDERED: CEFTRIAXONE 1000 MG/VIAL ONE (22:34)
[2021-04-02] MEDS ORDERED: POTASSIUM 25 MEQ EFFERV TAB ONE (22:35)
[2021-04-02] MEDS ORDERED: AZITHROMYCIN 500 MG INJ IVPB ONE (22:35)
[2021-04-02] MEDS ORDERED: NA CHLORIDE 0.9% 250 ML ONE (22:35)
[2021-04-02] MEDS ORDERED: KCL 20 MEQ/100 mL IVPB 100 ML IV ONE (22:35)
[2021-04-03] MEDS ORDERED: ALBUTEROL 2.5 MG/3 ML NEB SOL NEB PRN (01:04)
[2021-04-03] MEDS ORDERED: ONDANSETRON 4 MG/2 ML VIAL IV PRN (01:04)
[2021-04-03] MEDS ORDERED: ACETAMINOPHEN 325 MG TABLET PO PRN (01:04)
[2021-04-03] MEDS ORDERED: KCL 20 MEQ/100 mL IVPB 100 ML IV ONE (01:28)
[2021-04-03] MEDS: D5.45NS W/KCL 20MEQ 1,000 ML IV SCH ×2 (02:00→04:34)
[2021-04-03] MEDS: IPRATROPIUM BROM 0.5MG/2.5ML NEB SCH ×4 (02:00→19:55)
[2021-04-03] MEDS ORDERED: ENOXAPARIN 60 MG/0.6 ML SQ ONE (02:59)
[2021-04-03 03:57] VITALS: BMI 18.8
[2021-04-03] MEDS ORDERED: CEFTRIAXONE 1000 MG/VIAL ONE (08:29)
[2021-04-03] MEDS: AZITHROMYCIN IV 250 MG in NA CHLORIDE 0.9% 250 ML IVPB SCH (08:41)
[2021-04-03] MEDS: ASPIRIN EC 81 MG TAB PO SCH (08:42)
[2021-04-03] MEDS: ATORVASTATIN 20 MG TAB PO SCH (08:42)
[2021-04-03] MEDS: CEFTRIAXONE 1,000 MG in NA CHLORIDE 0.9% 50 ML IVPB SCH ×2 (08:43→20:41)
[2021-04-03] MEDS: LEVOTHYROXINE SOD 0.05 MG TABLET PO SCH (08:43)
[2021-04-03 09:19] LABS: Absolute Lymphocytes (CBC) 0.5 K/uL (0.7-4.9); Hematocrit 42.8 % (36.0-45.0); MPV 9.4 fL (7.6-11.3); RBC Red Blood Cell Count 5.03 M/uL (3.86-4.86)
[2021-04-03 09:30] LABS: BUN Blood Urea Nitrogen 14 mg/dL (7-18); Bicarbonate 32 mmol/L (21-32); Glucose Level 127 mg/dL (74-106); Sodium Level 139 mmol/L (136-145)
[2021-04-03 09:39] LABS: Magnesium 1.9 mg/dL (1.8-2.4); Thyroid Stimulating Hormone 2.12 uIU/mL (0.360-3.740)
--- NOTE | 2021-04-03 13:49 | P.HP ---
Certification for Inpatient Patient admitted to: Inpatient With expected LOS: >2 Midnights Practitioner: I am a practitioner with admitting privileges, knowledge of patient current condition, hospital course, and medical plan of care. Services: Services provided to patient in accordance with Admission requirements found in Title 42 Section 412.3 of the Code of Federal Regulations Patient History Date of Service: 04/03/21 Reason for admission: WEAKNESS History of Present Illness: CHERRI HAS ALZHEIMER'S DISEASE AND IS NOT ABLE TO COMMUNICATE WELL. I CALLED PARIS, HER DAUGHTER FOR HISTORY BUT SHE IS NOT AVAILABLE. PER ER DOCTOR HER COMPLAINS WERE WEAKNESS AND NOT EATING WELL. HER BNP WAS HIGH AT 14K BUT SHE HAS NO CHF SYMPTOMS. SHE HAS NO CHEST PAIN. Allergies No Known Allergies Allergy (Unverified 08/21/17 12:22) Home medications list reviewed: Yes Home Medications: Aspirin [Lo-Dose Aspirin EC] 81 mg PO DAILY 04/03/21 Atorvastatin Calcium 20 mg PO DAILY 04/03/21 Levothyroxine [Synthroid*] 50 mcg PO SEECOM 04/03/21 - Past Medical/Surgical History Has patient received pneumonia vaccine in the past: Yes Diabetic: No -: Dementia -: Hypertension -: Hypothyroidism -: Hip sx - Family History Father -: Lung disease, Cancer Mother -: Hypertension - Social History Smoking Status: Former smoker Alcohol use: Yes CD- Drugs: No Caffeine use: Yes Place of Residence: Home Review of Systems 10-point ROS is otherwise unremarkable Physical Examination - Vital Signs Temperature: 97.8 F Blood Pressure: 167/83 Pulse: 88 Respirations: 20 Pulse Ox (%): 92 - Physical Exam General: Alert, In no apparent distress HEENT: Atraumatic, PERRLA, Mucous membr. moist/pink, EOMI, Sclerae nonicteric Neck: Supple, 2+ carotid pulse no bruit, No LAD, Without JVD or thyroid abnormality Respiratory: Clear to auscultation bilaterally, Normal air movement Cardiovascular: Regular rate/rhythm, Normal S1 S2 Gastrointestinal: Normal bowel sounds, No tenderness Musculoskeletal: No tenderness Integumentary: No rashes Neurological: Normal gait, Normal speech, Normal strength at 5/5 x4 extr, Normal tone, Normal affect, Dementia Lymphatics: No axilla or inguinal lymphadenopathy - Studies Laboratory Data (last 24 hrs) 04/02/21 21:15: PT 18.5 H, INR 1.60 04/02/21 21:15: WBC 10.10, Hgb 14.3, Hct 42.5, Plt Count 264 04/02/21 21:15: Sodium 137, Potassium 2.5 L*, BUN 16, Creatinine 0.65, Glucose 118 H, Magnesium 2.0, Total Bilirubin 0.9, AST 57 H, ALT 17, Alkaline Phosphatase 109 Assessment and Plan - Problems (Diagnosis) (1) Bacterial pneumonia Current Visit: Yes Status: Acute Plan: IT MAY BE MILD EARLY PNEUMONIOA ON CT SCAN. NOT MUCH IMPRESSIVE. (2) Hypokalemia Current Visit: Yes Status: Acute Plan: UNCLEAR WHY GALLO MAY HAVE HYPERALDOSTERONISM. GIVE TRIAL OF SPIRONOLACOTNE. STOP IV FLUIDS SHE HAS ELEVATED BNP. (3) Troponin level elevated Current Visit: Yes Status: Acute Plan: ONCE AGAIN THERE ARE NO CARDIAC SYMPTOMS. I AM NOT SURE WHY ER DOCTOR ORDERED THIS TEST. IT IS HIGH BUT AGAIN SHE HAS DEMENTIA AND NOT A CANDIDATE OF EVALUATION UNLESS THERE ARE SYMPTOMS. - Advance Directives Does patient have a Living Will: Yes Does patient have a Durable POA for Healthcare: No
[2021-04-03] MEDS ORDERED: POTASSIUM CL 40 MEQ in NA CHLORIDE 0.9% 500 ML IV SCH (15:00)
--- NOTE | 2021-04-03 16:40 | RAD REPORT ---
EXAM DESCRIPTION: CT - Chest For Pe Angio - 04/03/2021 4:39 am CLINICAL HISTORY: 75 years, Female, SOB COMPARISON: None TECHNIQUE: Multiple transaxial tomograms of the chest were obtained from the lung apices through the lung bases utilizing 2 mm slice thickness at 2 mm interval reconstruction after the administration o f large bolus of IV contrast for complete opacification of the pulmonary arteries. Subsequent 3-D maximum intensity projection images were generated in the coronal and sagittal plane f or review. This exam was performed according to our departmental dose-optimization protocol, which includes auto mated exposure control, adjustment of the mA and/or kV according to patient size and/or use of iterat austyn reconstruction technique. FINDINGS: Images are compromised by motion artifact The lungs parenchyma demonstrate interlobular septal thickening minimal groundglass density right and left upper lobe/inferior lingular segment and posterior segment lower lobes with at this correspond to interstitial lung disease and/or atypical manifestation of viral pneumonia/Covid 19 pneumonia coul d be of consideration. There is no significant masses/or consolidations. The trachea mainstem bronc hus demonstrate to be normal. There is no significant pericardial or pleural effusions. The thoracic aorta demonstrate intimal calcification at the aortic arch and descending portion. There is no evidence for significant dissection and/or aneurysm. The heart is increased in size. There are coronary artery calcifications. No evidence for right ventricular strain. There is a prominent right hilar lymph node measuring 15 mm on image 56. There is no significant medi astinal lymphadenopathy. The axillary regions demonstrate to be clear. Pulmonary arteries demonstrate there is a small partial filling defect within the subsegmental branch of the proximal superior lingular segment on axial image 57-60. There is no evidence for right ventr icular strain. The bone windows demonstrate diffuse bony osteopenia. No significant compression def ormities. The visualized portions of the upper abdomen demonstrate to be grossly unremarkable. IMPRESSION: Compromise images due to motion artifact. Small partial filling defect within the subsegmental branch of the proximal superior lingular segment on axial image 57-60. Findings could be seen on COVID-19 pneumonia. Other processes such as influenza pneumonia and organiz ing pneumonia, as can be seen with drug toxicity and connective tissue disease, can cause a similar i maging pattern. Cardiomegaly with coronary artery calcifications. Prominent right hilar lymph node measuring 15 mm perhaps reactive in nature. Diffuse bony osteopenia. Electronically signed by: Zachery Stevens MD 04/02/2021 11:28 PM JOB SETTER Due to temporary technical issues with the PACS/Fluency reporting system, reports are being signed by the in house radiologists without review as a courtesy to insure prompt reporting. The interpreting radiologist is fully responsible for the content of the report.
--- NOTE | 2021-04-03 21:08 | RAD REPORT ---
EXAM DESCRIPTION: RAD - Foot Left 2 View - 04/03/2021 8:48 pm CLINICAL HISTORY: Left Foot pain FINDINGS: No fracture or dislocation Very large calcaneal spur. The bones are osteoporotic.
[2021-04-04] MEDS: IPRATROPIUM BROM 0.5MG/2.5ML NEB SCH ×4 (01:50→20:20)
[2021-04-04 04:30] LABS: Absolute Lymphocytes (CBC) 0.9 K/uL (0.7-4.9); Hematocrit 40.1 % (36.0-45.0); Lymphocytes % 11.4 % (15.3-44.8); MPV 9.3 fL (7.6-11.3); RBC Red Blood Cell Count 4.72 M/uL (3.86-4.86)
[2021-04-04 04:58] LABS: ALT/SGPT 11 U/L (12-78); AST/SGOT 40 U/L (15-37); Albumin 2.2 g/dL (3.4-5.0); Alkaline Phosphatase 105 U/L (45-117); BUN Blood Urea Nitrogen 14 mg/dL (7-18); Bicarbonate 31 mmol/L (21-32); Bilirubin Total 0.5 mg/dL (0.2-1.0); CKMB Creatine Kinase MB 2.2 ng/mL (1.0-3.6); Creatine Phosphokinase 74 U/L (26-192); Glucose Level 102 mg/dL (74-106); Potassium 3.5 mmol/L (3.5-5.1); Protein, Total 6.9 g/dL (6.4-8.2); Sodium Level 137 mmol/L (136-145)
--- NOTE | 2021-04-04 06:04 | P.PN ---
Date of Service: 04/04/21 Subjective: Patient alert, oriented x2, dementia Son at bedside, suspicion is at baseline mentally She denies any symptoms, denies any shortness of breath, on 3 L nasal cannula ROS: 10 point ROS as noted above, otherwise negative Physical exam GEN: Alert, orientedx2 HEENT: Normal conjunctiva, sclera anicteric CV: Regular rate and rhythm, no edema Pulm: Non-labored respiration on 3L NC ABD: Soft, nontender, nondistended Integumentary: No rashes Neuro: Normal speech, normal affect, +dementia Problem List Dizziness Bacterial pneumonia Possible PE Hypokalemia Elevated troponin Dementia Left heel pain/tenderness Possible mild, early pneumonia on CT scan, not very impressive CT scan noted subsegmental filling defects. Discussed with radiology, despite motion artifacts, this is more convincing for a true filling defect For now, will increase to therapeutic dose of Lovenox Pulmonology consulted, patient with new oxygen requirement Echocardiogram ordered Patient with hypokalemia, thought to maybe have some hyperaldosteronism, continue spironolactone Troponin mildly elevated, denies any chest pain/cardiac symptoms Physical therapy consulted Unclear etiology of dizziness, possible hypoxia, possible arrhythmia. Continue telemetry Patient reported left heel pain/tenderness yesterday, x-ray was obtained which revealed calcaneal spur, and orthopedic surgery was consulted per Dr. Langley VTE: Therapeutic Lovenox Code: Full Dispo: Anticipate SNF, in approximately 2 days Son at bedside, states patient has been not eating as well, more weak/tired over the last 3 weeks. Over the last 3 days has been feeling very dizzy when attempting to get up out of her recliner. Time Spent Managing Pts Care (In Minutes): 35
[2021-04-04] MEDS: CEFTRIAXONE 1,000 MG in NA CHLORIDE 0.9% 50 ML IVPB SCH (08:28)
[2021-04-04] MEDS: ATORVASTATIN 20 MG TAB PO SCH (08:29)
[2021-04-04] MEDS: ASPIRIN EC 81 MG TAB PO SCH (08:30)
[2021-04-04] MEDS: SPIRONOLACTONE 25 MG TABLET PO SCH (08:30)
[2021-04-04] MEDS ORDERED: ENOXAPARIN 40 MG/0.4 ML SQ SCH (09:00)
[2021-04-04] MEDS ORDERED: POTASSIUM CL SA 10 MEQ TAB PO ONE (09:00)
[2021-04-04] MEDS: AZITHROMYCIN IV 250 MG in NA CHLORIDE 0.9% 250 ML IVPB SCH (09:15)
--- NOTE | 2021-04-04 11:20 | P.CNS ---
Date of Consult: 04/04/21 Reason for Consult: Pneumonia Chief Complaint: WEAKNESS History of Present Illness: Patient is 75 years of age her son is present at the bedside patient is very alert oriented responsive cooperative according to her son she suddenly became weak unable to get up and it appeared in the hospital normally she is able to walk to the bathroom patient denies any complaints apart from feeling weak Allergies No Known Allergies Allergy (Unverified 08/21/17 12:22) Home Medications: Aspirin [Lo-Dose Aspirin EC] 81 mg PO DAILY 04/03/21 Atorvastatin Calcium 20 mg PO DAILY 04/03/21 Levothyroxine [Synthroid*] 50 mcg PO SEECOM 04/03/21 - Past Medical/Surgical History Diabetic: No -: Dementia -: Hypertension -: Hypothyroidism -: Hip sx - Family History Father Medical History: Lung disease, Cancer Mother Medical History: Hypertension - Social History Alcohol use: Yes CD- Drugs: No Caffeine use: Yes Place of Residence: Home Review of Systems 10-point ROS is otherwise unremarkable General: Weakness Physical Examination Temp Pulse Resp BP Pulse Ox 97.1 F 82 16 129/66 97 04/04/21 04:00 04/04/21 08:30 04/04/21 04:00 04/04/21 08:30 04/04/21 04:00 General: Alert, Oriented x3, Cooperative Respiratory: Crackles/rales Cardiovascular: No edema, Regular rate/rhythm Gastrointestinal: Normal bowel sounds, Soft and benign Musculoskeletal: No clubbing, No swelling Neurological: Normal speech - Problems (1) Bacterial pneumonia Current Visit: Yes Status: Acute Plan: Patient is 75 years of age admitted with sudden onset of weakness chest x-ray shows bilateral interstitial changes patient has tested COVID-negative recommend trial of steroids levofloxacin for atypical coverage questionable filling defect doubt pulmonary embolism can change to DVT prophylactic dose
[2021-04-04] MEDS: METHYLPREDNISOLONE 125 MG INJ IV SCH ×2 (11:54→21:09)
[2021-04-04] MEDS: levoFLOXacin 250 MG TAB PO SCH (11:54)
--- NOTE | 2021-04-04 19:35 | RAD REPORT ---
EXAM DESCRIPTION: US - Extrem Venous W Compress Freddy - 04/04/2021 6:40 pm CLINICAL HISTORY: Rule out DVT, COMPARISON: None. TECHNIQUE: Real-time sonographic evaluation of the bilateral lower extremity deep venous systems was performed. FINDINGS: Normal compressibility, flow augmentation, phasic flow and spontaneous flow is identified in both the left and right lower extremity deep venous systems. No intraluminal filling defects seen. IMPRESSION: No DVT in either lower extremity.
[2021-04-04] MEDS: ENOXAPARIN 60 MG/0.6 ML SQ SCH (21:09)
[2021-04-05] MEDS: IPRATROPIUM BROM 0.5MG/2.5ML NEB SCH ×4 (01:05→21:40)
[2021-04-05 05:56] LABS: Absolute Lymphocytes (CBC) 0.3 K/uL (0.7-4.9); Hematocrit 42.5 % (36.0-45.0); Lymphocytes % 4.6 % (15.3-44.8); MPV 9.7 fL (7.6-11.3); RBC Red Blood Cell Count 4.99 M/uL (3.86-4.86)
--- NOTE | 2021-04-05 06:10 | P.PN ---
Date of Service: 04/05/21 Subjective: Feeling better, breathing slightly more comfortably, still requiring oxygen Ambulated 20-30 feet, without dizziness No new concerns/symptoms ROS: 10 point ROS as noted above, otherwise negative Physical exam GEN: Alert, orientedx2 HEENT: Normal conjunctiva, sclera anicteric CV: Regular rate and rhythm, no edema Pulm: Non-labored respiration on 3L NC ABD: Soft, nontender, nondistended Integumentary: No rashes Neuro: Normal speech, normal affect, +dementia Problem List Dizziness, resolved Bacterial pneumonia Possible PE Hypokalemia Elevated troponin Dementia Left heel pain/tenderness Dizziness resolved, ambulated 20-30 feet today Possible mild, early pneumonia on CT scan, not very impressive CT scan noted subsegmental filling defects. Discussed with radiology, despite motion artifacts, this is more convincing for a true filling defect/PE Increase to therapeutic dose of Lovenox on 04/04 Patient son does state that she falls at least once a month, and the size of PE is unlikely to be causing her symptoms, may be slightly contributing. Pulmonology consulted, recommends switching to low-dose aspirin Echocardiogram ordered Patient with hypokalemia, thought to maybe have some hyperaldosteronism, continue spironolactone Troponin mildly elevated, denies any chest pain/cardiac symptoms Physical therapy consulted Unclear etiology of dizziness, possible hypoxia, possible arrhythmia. Continue telemetry Patient reported left heel pain/tenderness yesterday, x-ray was obtained which revealed calcaneal spur, and orthopedic surgery was consulted per Dr. Langley VTE: Therapeutic Lovenox Code: Full Dispo: social media analyst consulted for SNF Son at bedside, states patient has been not eating as well, more weak/tired over the last 3 weeks. Over the last 3 days has been feeling very dizzy when attempting to get up out of her recliner. Time Spent Managing Pts Care (In Minutes): 35
[2021-04-05 06:13] LABS: CKMB Creatine Kinase MB 3.2 ng/mL (1.0-3.6)
[2021-04-05 07:05] LABS: Blood Morphology Comment NOT SEEN (NOT SEEN); Platelet Estimate ADEQ; Platelets, Giant PRESENT; White Blood Cell Scan OK (OK)
[2021-04-05 07:27] LABS: BUN Blood Urea Nitrogen 14 mg/dL (7-18); Bicarbonate 27 mmol/L (21-32); Glucose Level 146 mg/dL (74-106); Potassium 3.8 mmol/L (3.5-5.1); Sodium Level 137 mmol/L (136-145)
--- NOTE | 2021-04-05 08:07 | EKG ---
Test Date: 2021-04-03 Test Time: 03:23:33 Staffing Director: AUGUSTINA MEASUREMENT RESULTS: Intervals: Rate: 78 SD: 134 QRSD: 90 QT: 454 QTc: 517 [place]: P: 47 SD: 134 QRS: -11 T: -31 INTERPRETIVE STATEMENTS: Normal sinus rhythm T wave abnormality, consider inferior ischemia Prolonged QT Abnormal ECG Compared to ECG 07/23/2003 09:57:00 Possible ischemia now present Left ventricular hypertrophy no longer present T-wave abnormality still present Electronically Signed On 04-05-21 08:03:18 CALENDER LET OFF OPERATOR by Esteban Rodriguez
--- NOTE | 2021-04-05 08:17 | RAD REPORT ---
EXAM DESCRIPTION: RAD - Chest Single View - 04/05/2021 6:13 am CLINICAL HISTORY: hypoxia, f/u opacities COMPARISON: Chest Single View dated 04/02/2021 FINDINGS: Lines: None. Lungs: Similar interstitial airspace disease bilaterally Pleural: No significant pleural effusions or pneumothorax. Cardiac: Cardiomegaly. Bones: No acute fractures. Other: IMPRESSION: No significant change in aeration of the lungs. Bilateral interstitial airspace disease which may represent a combination of acute pneumonia on chronic mixed obstructive/restrictive lung di sease.
[2021-04-05] MEDS: levoFLOXacin 250 MG TAB PO SCH (08:23)
[2021-04-05] MEDS: SPIRONOLACTONE 25 MG TABLET PO SCH (08:23)
[2021-04-05] MEDS: LEVOTHYROXINE SOD 0.05 MG TABLET PO SCH (08:24)
[2021-04-05] MEDS: ATORVASTATIN 20 MG TAB PO SCH (08:24)
[2021-04-05] MEDS: METHYLPREDNISOLONE 125 MG INJ IV SCH (08:24)
[2021-04-05] MEDS: ASPIRIN EC 81 MG TAB PO SCH (08:24)
[2021-04-05] MEDS: ENOXAPARIN 60 MG/0.6 ML SQ SCH ×2 (08:25→21:20)
--- NOTE | 2021-04-05 13:04 | P.PN ---
Subjective Date of Service: 04/05/21 Chief Complaint: Interstitial pneumonia Subjective: Improving (Patient is doing well did ambulate today been having progressive weakness for the past 3 months son at the bedside much better) Review of Systems General: Weakness Respiratory: Shortness of Breath Physical Examination - Vital Signs Temperature: 98.2 F Blood Pressure: 141/76 Pulse: 91 Respirations: 18 Pulse Ox (%): 93 - Physical Exam General: Alert, Oriented x3 Neck: Supple Respiratory: Crackles/rales Cardiovascular: No edema (Bilateral crackles), Regular rate/rhythm Assessment & Plan - Problems (Diagnosis) (1) Bacterial pneumonia Current Visit: Yes Status: Acute Plan: Patient has bilateral interstitial pneumonia is doing much better continue with prednisone milligrams twice a day for week then 10 twice a day continue with antibiotics patient has been evaluated for long-term care change to p.o. prednisone evaluate for home O2 patient satting satisfactory on 3 L room air sat is 81% probably qualify for home O2 follow-up with my clinic in 2 weeks quite possible that she has underlying pulmonary fibrosis will need to be further evaluated as an outpatient
[2021-04-05] MEDS: predniSONE 20 MG TAB PO SCH (21:20)
[2021-04-05] MEDS: JUVEN PACKET PO SCH (21:21)
[2021-04-05] MEDS: ENSURE ENLIVE 237 ML CAN PO SCH (21:23)
[2021-04-06] MEDS: IPRATROPIUM BROM 0.5MG/2.5ML NEB SCH ×4 (02:05→20:10)
[2021-04-06 05:51] LABS: CKMB Creatine Kinase MB 4.6 ng/mL (1.0-3.6)
[2021-04-06 08:02] LABS: MPV 9.6 fL (7.6-11.3)
[2021-04-06] MEDS: ENOXAPARIN 60 MG/0.6 ML SQ SCH ×2 (08:55→21:00)
[2021-04-06] MEDS: predniSONE 20 MG TAB PO SCH ×2 (08:56→21:01)
[2021-04-06] MEDS: levoFLOXacin 250 MG TAB PO SCH (08:56)
[2021-04-06] MEDS: ASPIRIN EC 81 MG TAB PO SCH (08:56)
[2021-04-06] MEDS: SPIRONOLACTONE 25 MG TABLET PO SCH (08:56)
[2021-04-06] MEDS: ATORVASTATIN 20 MG TAB PO SCH (08:56)
[2021-04-06] MEDS: JUVEN PACKET PO SCH ×2 (08:57→21:02)
[2021-04-06] MEDS: ENSURE ENLIVE 237 ML CAN PO SCH ×2 (08:57→21:01)
--- NOTE | 2021-04-06 15:38 | P.PN ---
Subjective Date of Service: 04/06/21 Chief Complaint: Interstitial pneumonia Patient ambulated about 100 feet with a rolling walker. Her oxygen saturation is 100% on 2 L oxygen by nasal cannula. Physical Examination - Vital Signs Temperature: 97.4 F Blood Pressure: 143/66 Pulse: 108 Respirations: 22 Pulse Ox (%): 98 - Physical Exam General: Alert, In no apparent distress Assessment And Plan - Plan Physical exam GEN: Alert, orientedx2 HEENT: Normal conjunctiva, sclera anicteric CV: Regular rate and rhythm, no edema Pulm: Non-labored respiration on 2L NC, mild basilar rales ABD: Soft, nontender, nondistended Integumentary: No rashes Neuro: Normal speech, normal affect, +dementia Problem List Dizziness, resolved Bacterial pneumonia Possible PE Hypokalemia Elevated troponin Dementia Left heel pain/tenderness Dizziness resolved, patient now ambulating several feet, up to 100 ft with a [address]er. CT scan noted subsegmental filling defects. Discussed with radiology, despite motion artifacts, this is more convincing for a true filling defect/PE Patient started on therapeutic dose of Lovenox but his son is concerned about her multiple falls and anticoagulation. Patient son does state that she falls at least once a month, and the size of PE is unlikely to be causing her symptoms, may be slightly contributing. Pulmonology-Dr. Valles recommends switching to low-dose aspirin for the PE. Echocardiogram completed. The result is pending. Continue spironolactone Troponin mildly elevated, denies any chest pain/cardiac symptoms Continue PT. Unclear etiology of dizziness. No arrhythmia identified. Patient reported left heel pain/tenderness yesterday, x-ray was obtained which revealed calcaneal spur. VTE: Therapeutic Lovenox Code: Full Dispo: Family are considering home with home health rather than SNF.
[2021-04-06] MEDS: carvediloL 6.25 MG TAB PO SCH (21:27)
[2021-04-06 23:49] VITALS: O2SAT 95
[2021-04-07] MEDS: IPRATROPIUM BROM 0.5MG/2.5ML NEB SCH ×2 (01:10→08:00)
[2021-04-07 05:12] LABS: BUN Blood Urea Nitrogen 19 mg/dL (7-18); Bicarbonate 31 mmol/L (21-32); Glucose Level 145 mg/dL (74-106); Potassium 3.7 mmol/L (3.5-5.1); Sodium Level 139 mmol/L (136-145)
--- NOTE | 2021-04-07 08:27 | ECHO ---
HEIGHT: 5 ft 5 in WEIGHT: 115 lb 0 oz DATE OF STUDY: 04/06/[address]: Gigi Langley MD 2-DIMENSIONAL: YES M.MODE: YES DOPPLER: YES COLOR FLOW: YES TDS: PORTABLE: DEFINITY: BUBBLE STUDY: DIAGNOSIS: BNP ELEVATION CARDIAC HISTORY: CATHERIZATION: SURGERY: PROSTHETIC VALVE: PACEMAKER: MEASUREMENTS (cm) DIASTOLIC (NORMALS) SYSTOLIC (NORMALS) IVSd 1.0 (0.6-1.2) LA Diam 3.2 (1.9-4.0) LVEF 30-35% LVIDd 4.2 (3.5-5.7) LVIDs 3.5 (2.0-3.5) %FS 17% LVPWd 1.0 (0.6-1.2) Ao Diam 2.8 (2.0-3.7) 2 DIMENSIONAL ASSESSMENT: RIGHT ATRIUM: NORMAL LEFT ATRIUM: NORMAL RIGHT VENTRICLE: NORMAL LEFT VENTRICLE: NORMAL TRICUSPID VALVE: NORMAL MITRAL VALVE: NORMAL PULMONIC VALVE: NORMAL AORTIC VALVE: NORMAL PERICARDIAL EFFUSION: NONE AORTIC ROOT: NORMAL LEFT VENTRICULAR WALL MOTION: SEVERE GLOBAL HYPOKINESIS DOPPLER/COLOR FLOW: MODERATE TRICUSPID REGURGITATION. MODERATE PULMONARY HYPERTENSION. COMMENTS: MODERATE PULMONARY HYPERTENSION. MODERATE TRICUSPID REGURGITATION. MODERATE TRICUSPID REGURGITATION. EJECTION FRACTION 30-35%. SEVERE GLOBAL HYPOKINESIS. ELEVATED ECHO GENICITY - CARDIAC AMYLOIDOSIS. TECHNOLOGIST: NEIL RICK
[2021-04-07] MEDS ORDERED: ENOXAPARIN 40 MG/0.4 ML SQ SCH (09:00)
[2021-04-07] MEDS ORDERED: levoFLOXacin 750 MG TAB PO SCH (09:00)
[2021-04-07] MEDS ORDERED: POTASSIUM CL SA 10 MEQ TAB PO ONE (09:00)
[2021-04-07] MEDS: ENSURE ENLIVE 237 ML CAN PO SCH (09:00)
[2021-04-07] MEDS: JUVEN PACKET PO SCH (09:00)
[2021-04-07] MEDS: ATORVASTATIN 20 MG TAB PO SCH (09:26)
[2021-04-07] MEDS: ASPIRIN EC 81 MG TAB PO SCH (09:26)
[2021-04-07] MEDS: predniSONE 20 MG TAB PO SCH (09:26)
[2021-04-07] MEDS: LEVOTHYROXINE SOD 0.05 MG TABLET PO SCH (09:27)
[2021-04-07] MEDS: carvediloL 6.25 MG TAB PO SCH (09:27)
[2021-04-07] MEDS: SPIRONOLACTONE 25 MG TABLET PO SCH (09:27)
--- NOTE | 2021-04-07 10:03 | P.DS ---
Admission Date: 04/03/21 Discharge Date: 04/07/21 Disposition: ROUTINE DISCHARGE Discharge Condition: FAIR Reason for Admission: Interstitial pneumonia - Problems (1) Bacterial pneumonia Current Visit: Yes Status: Acute (2) Hypokalemia Current Visit: Yes Status: Acute (3) Troponin level elevated Current Visit: Yes Status: Acute Brief History of Present Illness: CHERRI HAS ALZHEIMER'S DISEASE AND IS NOT ABLE TO COMMUNICATE WELL. I CALLED PARIS, HER DAUGHTER FOR HISTORY BUT SHE IS NOT AVAILABLE. PER ER DOCTOR HER COMPLAINS WERE WEAKNESS AND NOT EATING WELL. HER BNP WAS HIGH AT 14K BUT SHE HAS NO CHF SYMPTOMS. SHE HAS NO CHEST PAIN. Hospital Course: MS NG COMES WITH WEAKNESS SYMPTOMS. NOT MUCH WAS DETECTED ON LUNG CT SCAN. THERE MAY BE AN EARLY PNEUMONIA. ER DOCTOR DID BNP AND IT WAS HIGH BUT THERE IS NO SIGN OF CHF. I DID ECHO AND IT SHOWED ECHOGENICITY LIKE WE SEE IN AMYLOIDOSIS, MOD PULMONARY HTN AND LOW EF OF 30%. SHE IS SYMPTOMFREE. I ADDED CARVEDILOL TO SPIRONOLACTONE SHE WAS STARTED BY ME A FEW DAYS AGO. SHE WAS SEEN BY HOSPITAL DOCTORS UNTIL TODAY I AM BACK. SHE IS STABLE AND AMBULATING TO GO HOME WITH FAMILY. SHE HAS MILD HYPOXIA AND WILL BE ON OXGYEN. I CALLED SON TO DISCUSS BUT HE DID NOT B2B SALES EXECUTIVE PHONE AND VOICEMAIL IS FULL. Vital Signs/Physical Exam: Temp Pulse Resp BP Pulse Ox 97.0 F 80 20 109/58 L 98 04/07/21 08:00 04/07/21 09:27 04/07/21 08:00 04/07/21 08:00 04/07/21 08:00 Laboratory Data at Discharge: WBC 7.10 K/uL (4.3-10.9) 04/05/21 05:25 Hgb 13.9 g/dL (12.0-15.0) 04/05/21 05:25 Hct 42.5 % (36.0-45.0) 04/05/21 05:25 Plt Count 333 K/uL (152-406) 04/06/21 07:41 PT 18.5 SECONDS (9.5-12.5) H 04/02/21 21:15 INR 1.60 04/02/21 21:15 Sodium 139 mmol/L (136-145) 04/07/21 04:44 Potassium 3.7 mmol/L (3.5-5.1) 04/07/21 04:44 BUN 19 mg/dL (7-18) H 04/07/21 04:44 Creatinine 0.51 mg/dL (0.55-1.3) L 04/07/21 04:44 Glucose 145 mg/dL (74-106) H 04/07/21 04:44 Magnesium 2.0 mg/dL (1.8-2.4) 04/04/21 04:11 Total Bilirubin 0.5 mg/dL (0.2-1.0) 04/04/21 04:11 AST 40 U/L (15-37) H 04/04/21 04:11 ALT 11 U/L (12-78) L 04/04/21 04:11 Alkaline Phosphatase 105 U/L (45-117) 04/04/21 04:11 Home Medications: Aspirin [Lo-Dose Aspirin EC] 81 mg PO DAILY 04/03/21 Atorvastatin Calcium 20 mg PO DAILY 04/03/21 Levothyroxine [Synthroid*] 50 mcg PO SEECOM 04/03/21 Albuterol Neb [Proventil 0.083% Neb Soln] 2.5 mg NEB Q6HP PRN #120 amp 04/06/21 Ensure Enlive 237 ml PO BID #30 can 04/06/21 Ipratropium Neb [Atrovent*] 0.5 mg NEB [id number] #120 amp 04/06/21 Yoandy [Yoandy*] 1 pkt PO BID #30 powd.pack 04/06/21 Nebulizer [Aeroneb Go Nebulizer] 1 each MC TID #1 each 04/06/21 Spironolactone [Aldactone*] 25 mg PO DAILY #30 tab 04/06/21 levoFLOXacin [Levaquin*] 750 mg PO DAILY #5 tab 04/06/21 predniSONE [Prednisone*] 20 mg PO BID #10 tab 04/06/21 carvediloL [Coreg*] 6.25 mg PO BID #60 tab 04/07/21 New Medications: Nebulizer [Aeroneb Go Nebulizer] 1 each MC TID #1 each Spironolactone [Aldactone*] 25 mg PO DAILY #30 tab Ipratropium Neb [Atrovent*] 0.5 mg NEB [id number] #120 amp carvediloL [Coreg*] 6.25 mg PO BID #60 tab Ensure Enlive 237 ml PO BID #30 can Yoandy [Yoandy*] 1 pkt PO BID #30 powd.pack levoFLOXacin [Levaquin*] 750 mg PO DAILY #5 tab predniSONE [Prednisone*] 20 mg PO BID #10 tab Albuterol Neb [Proventil 0.083% Neb Soln] 2.5 mg NEB Q6HP PRN #120 amp PRN Reason: Shortness Of Breath Diet: AHA Activity: Fall precautions Followup: Gigi Langley MD [Primary Care Provider] - 1-2 Weeks
[2021-04-07 12:19] VITALS: BP 110/67; TEMP 97.5
== END 2021-04-07 15:19 | disposition home health service (06) | DRG 195 ==
LOC: ER 18:15 → ERHOLD 04-03 01:40 → 2ND 04-03 02:31
PROVIDERS: ADMIT Internal Medicine; ATTEND Internal Medicine
DX: J15.9 Unspecified bacterial pneumonia (principal); E87.6 Hypokalemia; G30.9 Alzheimer's disease, unspecified; F02.80 Dementia in other diseases classified elsewhere, unspecified severity, without behavioral disturbance, psychotic disturbance, mood disturbance, and anxiety; I27.20 Pulmonary hypertension, unspecified; R77.8 Other specified abnormalities of plasma proteins; Z79.82 Long term (current) use of aspirin; Z79.890 Hormone replacement therapy; Z79.899 Other long term (current) drug therapy; Z87.891 Personal history of nicotine dependence; Z79.52 Long term (current) use of systemic steroids; Z20.822 Contact with and (suspected) exposure to COVID-19
CPT/HCPCS: 0241U; 36415; 70450; 71045; 71275; 80048; 80053; 80076; 80320; 80329; 82550; 82553; 82607; 83605; 83735; 83880; 84145; 84443; 84484; 85025; 85049; 85379; 85610; 87040; 93005; 93306; 93970; 94640; 94760; 96365; 96368; 96372; 96375; 97110; 97116; 97161; 97530; 99285; J0456; J1650; J2930; J3480; J7040; J7050; J7512; Q9967; U0003

== ENCOUNTER 2021-04-13 00:11 | Emergency (ER) | payer OTHER ==
--- OUTSIDE RECORDS SUMMARY | 2021-04-13 00:14 | XMS REPORT | Continuity of Care Document ---
:1945 Author Organization [facility] t Address [address] [place] [address] Care Team Providers Name Role Phone Mechelle [...] Clinicians Facility Department ID 2018-11-07 2018-11-07 Emergency Leanna Sood [facility] [id number] 11:17:15 13:29:00 Mechelle Bradshaw [id number] [place] [id number] [place] [id number] 2018-11-07 2018-11-07 Orders Doctor RACHEL [id number] 00:00:00 00:00:00 Only UnassignedGABRIELLE [id number] [place] [facility] [id number] Results This patient has no known results.
--- NOTE | 2021-04-13 02:40 | ER ---
Nurse's Notes [facility] Name: Dayan Riojas Age: 75 yrs Sex: Female : 1945 Arrival Date: 04/13/2021 Time: 00:20 Bed 15 Private MD: Diagnosis: Constipation, unspecified Presentation: 04/13 00:36 Chief complaint: EMS states: Family told EMS patient with pain to left lower extremity. tk1 Concerned with possible blood clot. Coronavirus screen: Vaccine status: Patient reports receiving the 2nd dose of the covid vaccine. Date April 21, 2021 Patient reports receiving the 1st dose of the Covid vaccine. Date March 25, 2021 Client denies travel out of the [place] in the last 14 days. At this time, the client does not indicate any symptoms associated with coronavirus-19. Ebola Screen: Patient negative for fever greater than or equal to 101.5 degrees Fahrenheit, and additional compatible Ebola Virus Disease symptoms Patient denies travel to an Ebola-affected area in the 21 days before illness onset. Initial Sepsis Screen: Does the patient meet any 2 criteria? No. Patient's initial sepsis screen is negative. Does the patient have a suspected source of infection? No. Patient's initial sepsis screen is negative. Risk Assessment: Do you want to hurt yourself or someone else? Patient reports no desire to harm self or others. Onset of symptoms was April 12, 2021 at 21:00. 00:36 Method Of Arrival: EMS tk1 00:36 Acuity: AZIZA 4 tk1 Triage Assessment: 00:42 General: Appears in no apparent distress. comfortable, well groomed, well developed, tk1 well nourished, Behavior is calm, cooperative. Pain: Denies pain. EENT: No deficits noted. Neuro: Level of Consciousness is awake, alert, obeys commands, Oriented to person, place, Systems Developer are equal bilaterally Moves all extremities. Gait is steady, Speech is normal, Facial symmetry appears normal, Reports. Cardiovascular: No deficits noted. Heart tones S1 S2 present Capillary refill < 3 seconds is brisk Clubbing of nail beds is absent JVD is absent Patient's skin is warm and dry. Rhythm is sinus rhythm. Respiratory: No deficits noted. Airway is patent Breath sounds are clear bilaterally. GI: Parent/caregiver reports the patient having constipation, No BM in 5 days. : No deficits noted. Derm: No deficits noted. Musculoskeletal: No deficits noted. Historical: - Home Meds: 00:42 Namzaric 28-10 mg Oral CSpX 1 cap once daily [Active]; aspirin 325 mg Oral tab 1 tab tk1 once daily [Active]; donepezil 23 mg Oral tab 1 tab once daily [Active]; Fish Oil Oral [Active]; levothyroxine 50 mcg tab 1 tab once daily [Active]; losartan 100 mg Oral tab 1 tab once daily [Active]; Magnesium Oxide Oral [Active]; metoprolol tartrate 25 mg Oral tab 1 tab once daily [Active]; - PMHx: 00:42 Dementia; Hypertensive disorder; Hypothyroidism; tk1 - Immunization history:: Adult Immunizations up to date. - Social history:: Smoking status: Patient/guardian denies using tobacco, but has a distant history of tobacco abuse. Screenin:47 Abuse screen: Denies threats or abuse. Denies injuries from another. Nutritional tk1 screening: No deficits noted. Tuberculosis screening: No symptoms or risk factors identified. Fall Risk No fall in past 12 months (0 pts). Secondary diagnosis (15 points) dementia, IV access (20 points). Ambulatory Aid- None/Bed Rest/Nurse Assist (0 pts). Gait- Normal/Bed Rest/Wheelchair (0 pts) Mental Status- Overestimates/Forgets Limitations (15 pts.). Sepsis Screening:. Assessment: 00:47 Reassessment: See Triage assessment. tk1 01:55 General: Appears in no apparent distress. Behavior is calm, cooperative. Pain: Denies tk1 pain. Neuro: No deficits noted. Cardiovascular: No deficits noted. Heart tones S1 S2 present. Respiratory: No deficits noted. Airway is patent. GI: No deficits noted. 02:30 Reassessment: Patient appears in no apparent distress at this time. No changes from tk1 previously documented assessment. Patient denies pain at this time. Vital Signs: 00:36 BP 111 / 67 LA Supine (auto/reg); Pulse 75 MON; Resp 18 S; Pulse Ox 100% on 2 lpm NC; tk1 Weight 52.16 kg; Height 5 ft. 5 in. (165.10 cm); Pain 0/10; 00:42 Temp 98.3(O); tk1 00:47 BP 111 / 61 RA Supine (auto/reg); Pulse 77 MON; Resp 18 S; Pulse Ox 99% ; tk1 01:55 BP 121 / 61 RA Supine (auto/reg); Pulse 59 MON; Resp 18; Pulse Ox 99% on 2 lpm NC; tk1 02:45 BP 125 / 65 LA Supine (auto/reg); Pulse 60 MON; Resp 16; Pulse Ox 100% on 2 lpm NC; tk1 Pain 0/10; 00:36 Body Mass Index 19.14 (52.16 kg, 165.10 cm) tk1 Vitals: 00:47 Cardiac Rhythm Assessment Regular Sinus rhythm. tk1 01:55 Cardiac Rhythm Assessment Regular Sinus rhythm. tk1 02:45 Cardiac Rhythm Assessment Regular Sinus rhythm. tk1 ED Course: 00:20 Patient arrived in ED. mw2 00:22 Kervin Rivas NP is PHCP. pm1 00:22 Florentino Javed MD is Attending Physician. pm1 00:35 Brianna Bullock is Primary Nurse. tk1 00:42 Triage completed. tk1 00:42 Arm band placed on right wrist. tk1 00:47 Patient has correct armband on for positive identification. Bed in low position. Call tk1 light in reach. Side rails up X2. Adult w/ patient. monitoring and evaluation advisor on. Pulse ox on. NIBP on. 00:47 No provider procedures requiring assistance completed. Inserted saline lock: 20 gauge tk1 in right forearm, using aseptic technique. 01:37 Extrem Venous W Compression Freddy US In Process Unspecified. EDMS 01:45 Abdomen 1 View (KUB) XRAY In Process Unspecified. EDMS 02:45 IV discontinued, intact, bleeding controlled, No redness/swelling at site. Pressure tk1 dressing applied. Administered Medications: No medications were administered Outcome: 02:40 Discharge ordered by MD. pm1 03:09 Discharged to home via wheelchair, with family. tk1 03:09 Condition: stable 03:09 Discharge instructions given to patient, family, Instructed on discharge instructions, follow up and referral plans. medication usage, Demonstrated understanding of instructions, follow-up care, medications. 03:09 Patient left the ED. tk1 Signatures: Dispatcher [employer] EDMS Kervin Rivas NP CONSERVATION SCIENCE TEACHER pm1 Eric Montoya mw2 Brianna Bullock tk1
--- NOTE | 2021-04-13 02:41 | EDPHYS ---
Physician Documentation [facility] Name: Dayan Riojas Age: 75 yrs Sex: Female : 1945 Arrival Date: 04/13/2021 Time: 00:20 Bed 15 Private MD: FOR[place]AT[place] Physician Florentino Javed HPI: 04/13 01:09 This 75 yrs old Female presents to ER via EMS with complaints of constipation. pm1 01:09 The patient presents with Constipation. Onset: The symptoms/episode began/occurred 5 pm1 day(s) ago. Associated signs and symptoms: Pertinent negatives: nausea, vomiting, and diarrhea, decreased appetite. The patient has not experienced similar symptoms in the past. The patient has been recently been admitted at [facility], by Dr. Langley and discharged home 5 days ago. Patient was brought to the ER today with complaints of left leg pain. Patient would wake up with complaints of left leg pain in the middle of the night. Son is concerned that patient possibly has a DVT. Patient also has not had a bowel movement since discharge from the hospital 5 days ago. No issues with urination. Her son is currently planning with her PCP for placement in a assisted that can handle her dementia. Historical: - Home Meds: 00:42 Namzaric 28-10 mg Oral CSpX 1 cap once daily [Active]; aspirin 325 mg Oral tab 1 tab tk1 once daily [Active]; donepezil 23 mg Oral tab 1 tab once daily [Active]; Fish Oil Oral [Active]; levothyroxine 50 mcg tab 1 tab once daily [Active]; losartan 100 mg Oral tab 1 tab once daily [Active]; Magnesium Oxide Oral [Active]; metoprolol tartrate 25 mg Oral tab 1 tab once daily [Active]; - PMHx: 00:42 Dementia; Hypertensive disorder; Hypothyroidism; tk1 - Immunization history:: Adult Immunizations up to date. - Social history:: Smoking status: Patient/guardian denies using tobacco, but has a distant history of tobacco abuse. ROS: 01:09 Constitutional: Negative for fever, chills, and weight loss, Cardiovascular: Negative pm1 for chest pain, palpitations, and edema, Respiratory: Negative for shortness of breath, cough, wheezing, and pleuritic chest pain. 01:09 Back: Negative for injury and pain. 01:09 Skin: Negative for injury, rash, and discoloration, Neuro: Negative for headache, weakness, numbness, tingling, and seizure. 01:09 Abdomen/GI: Positive for constipation, Negative for abdominal pain, nausea, vomiting, and diarrhea. 01:09 MS/extremity: Positive for Left leg pain. 01:09 All other systems are negative. Exam: 01:09 Constitutional: This is a well developed, well nourished patient who is awake, alert, pm1 and in no acute distress. Head/Face: Normocephalic, atraumatic. 01:09 Skin: Warm, dry with normal turgor. Normal color with no rashes, no lesions, and no evidence of cellulitis. MS/ Extremity: Pulses equal, no cyanosis. Neurovascular intact. Full, normal range of motion. No palpable pain present. Muscle wasting present to lower extremity 01:09 Cardiovascular: Exam negative for acute changes, Rate: normal, Rhythm: regular, Pulses: no pulse deficits are appreciated. 01:09 Respiratory: Exam negative for acute changes, the patient does not display signs of respiratory distress, Respirations: no acute changes, is not noted, Breath sounds: are clear throughout. 01:09 Abdomen/GI: Inspection: abdomen appears normal, Palpation: abdomen is soft and non-tender, in all quadrants. 01:09 Neuro: Exam negative for acute changes, Orientation: is normal, Mentation: is normal. Vital Signs: 00:36 BP 111 / 67 LA Supine (auto/reg); Pulse 75 MON; Resp 18 S; Pulse Ox 100% on 2 lpm NC; tk1 Weight 52.16 kg; Height 5 ft. 5 in. (165.10 cm); Pain 0/10; 00:42 Temp 98.3(O); tk1 00:47 BP 111 / 61 RA Supine (auto/reg); Pulse 77 MON; Resp 18 S; Pulse Ox 99% ; tk1 01:55 BP 121 / 61 RA Supine (auto/reg); Pulse 59 MON; Resp 18; Pulse Ox 99% on 2 lpm NC; tk1 02:45 BP 125 / 65 LA Supine (auto/reg); Pulse 60 MON; Resp 16; Pulse Ox 100% on 2 lpm NC; tk1 Pain 0/10; 00:36 Body Mass Index 19.14 (52.16 kg, 165.10 cm) tk1 MDM: 00:22 Patient medically screened. [facility] 02:39 Data reviewed: vital signs. Data interpreted: Pulse oximetry: on room air is 99 %. pm1 Interpretation: normal. Counseling: I had a detailed discussion with the patient and/or guardian regarding: the historical points, exam findings, and any diagnostic results supporting the discharge/admit diagnosis, radiology results, the need for outpatient follow up, to return to the emergency department if symptoms worsen or persist or if there are any questions or concerns that arise at home. 02:39 ED course: Offered digital rectal examination and possible stool removal but pm1 recommended suppository since the patient has dementia. Patient wants to try PO laxatives prior to disimpaction. Discussed return precautions. 02:39 ED course: Patient sleeping comfortably in bed without any complaints of pain through pm1 ER visit. Discussed comfort measures with son. 04/13 01:02 Order name: Extrem Venous W Compression Freddy US pm1 04/13 01:12 Order name: Abdomen 1 View (KUB) XRAY pm1 Administered Medications: No medications were administered Disposition: 15:18 Co-signature as Attending Physician, Florentino Javed MD I agree with the assessment and [facility] plan of care. Disposition Summary: 04/13/21 02:40 Discharge Ordered Location: Home pm1 Problem: new pm1 Symptoms: have improved pm1 Condition: Stable pm1 Diagnosis - Constipation, unspecified pm1 Followup: pm1 - With: Emergency Department - When: As needed - Reason: Worsening of condition Followup: pm1 - With: Private Physician - When: 2 - 3 days - Reason: Recheck today's complaints, Continuance of care, Re-evaluation by your physician Discharge Instructions: - Discharge Summary Sheet pm1 - Constipation, Adult pm1 Forms: - Medication Reconciliation Form pm1 - Thank You Letter pm1 - Antibiotic Education pm1 - Prescription Opioid Use pm1 Prescriptions: - Miralax 17 gram Oral powder in packet - take 1 packet by ORAL route once daily As needed; 7 packet; Refills: 0, Product pm1 Selection Permitted Signatures: Dispatcher [employer] Florentino Silverio MD MD cha Marinas, Patrick, BUILDING INSULATION INSTALLER BUILDING INSULATION INSTALLER pm1 Brianna Bullock tk1
[2021-04-13 03:40] VITALS: TEMP 98.3
[2021-04-13 03:44] VITALS: BP 125/65; O2SAT 100
--- NOTE | 2021-04-13 07:35 | RAD REPORT ---
EXAM DESCRIPTION: US - Extrem Venous W Compress Freddy - 04/13/2021 1:38 am CLINICAL HISTORY: Pain COMPARISON: None. TECHNIQUE: Real-time sonographic evaluation of the bilateral lower extremity deep venous systems was performed. FINDINGS: Normal compressibility, flow augmentation, phasic flow and spontaneous flow is identified in both the left and right lower extremity deep venous systems. No intraluminal filling defects seen. IMPRESSION: No DVT in either lower extremity.
--- NOTE | 2021-04-13 07:43 | RAD REPORT ---
EXAM DESCRIPTION: RAD - Abdomen 1 View (KUB) - 04/13/2021 1:45 am CLINICAL HISTORY: CONSTIPATION COMPARISON: No comparisons FINDINGS: Nonobstructive bowel gas pattern. Degenerative changes are present in the spine and at the hips. Mild formed stool burden. Chronic interstitial lung disease. Cardiomegaly. IMPRESSION: Nonobstructive bowel gas pattern.
== END 2021-04-13 03:09 | disposition home or self-care (01) ==
LOC: ER 00:11
DX: K59.00 Constipation, unspecified (principal); M79.605 Pain in left leg; E03.9 Hypothyroidism, unspecified; F03.90 Unspecified dementia, unspecified severity, without behavioral disturbance, psychotic disturbance, mood disturbance, and anxiety; I10 Essential (primary) hypertension; Z79.82 Long term (current) use of aspirin
CPT/HCPCS: 74018; 93970; 99284